=== PATIENT | female | born 1950 | race Caucasian/White ===

== ENCOUNTER 2018-12-29 12:00 | Outpatient (CLI) | payer MEDICARE, OTHER ==
--- NOTE | 2018-12-29 12:28 | XRAY Report ---
Reason: PAIN BLOATING Procedure Date: 12/29/2018 Accession Number: [id number] / [id number] Procedure: XRN - Abdomen 1 View X-Ray CPT Code: 23655 FULL RESULT: EXAM: ABDOMEN RADIOGRAPHY EXAM DATE: 12/29/2018 12:14 PM. CLINICAL HISTORY: Pain, bloating. COMPARISON: None. TECHNIQUE: 1 view. FINDINGS: Bowel Gas Pattern: Within normal limits. No dilated loops. Other: None. IMPRESSION: Nonobstructive bowel gas pattern. RADIA
== END 2018-12-29 12:01 | disposition home or self-care (01) ==
LOC: DI.N 12:00
PROVIDERS: ATTEND Family Medicine
DX: R14.0 Abdominal distension (gaseous) (principal); R10.9 Unspecified abdominal pain
CPT/HCPCS: 74018

== ENCOUNTER 2019-02-24 12:38 | Outpatient (CLI) | payer MEDICARE, OTHER ==
--- NOTE | 2019-02-24 16:40 | CONSULTATION NOTE ---
Palliative Care Consultation - Referral Referring Provider: Dr. 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 Patient originally had breast cancer in 1997. She was known to have BRACA2 mutation. At the time of her surgery, she was diagnosed with high-grade serous fallopian tube carcinoma, with a T CT scan that showed a 7 x 3.8 x 5.1 adnexal mass. She then underwent an optimal cytoreduction and robotic assisted left salpingo-oophorectomy, omentectomy, hysterectomy, and debulking at [facility]. And received dose dense carboplatinum and paclitaxel. With remission, unfortunately recurrence in October 2016. Went on to receive paclitaxel and Avastin. She really received SBRT in December 2017-2 periaortic lymph nodes. Since that time she is also received 3 BP (3 bromo-pyruvate treatment) In [facility] in [place]. She has been managing with hyperbaric oxygen treatments, and supplements. Until about a month ago she was having increased bloating, ascites, and was concerned about obstruction in December/2018. She has since been following up for recommendations regarding treatment, she did see Dr. dowd in December, with recommendation of further chemotherapy with palliative intent. But in seeking a second opinion with Dr. Romero at [facility], She was started on a park inhibitor, this was matched because of her BRCA2 mutation status. Unfortunately she continues to have recurrent ascites, currently has been receiving paracentesis for about every 10 days, with the last one on 02/17 with 5000 mils of fluid. She is getting those up at [facility]. Her PET CT on 01/12/2019 showed extensive metastatic implants with innumerable foci of hypermetabolic lesions along the peritoneal surface consistent with diffuse peritoneal carcinomatosis, several hyper metallic buttock retroperitoneal and mesenteric lymph nodes consistent with mets, with the largest 2.1 x 1.3 soft tissue nodule in the left mesentery. Patient has had recurrent paracentesis, over the last couple months, lasting days prior to needing for symptomatic relief. She does report feeling quite horrible after them, with sharp shooting pains and fatigue. Reports takes 2 to 3 days to recover. They are waiting to see her response to her treatment, but have introduced possible Pleurx catheter for symptom management. Patient presents is quite fragile, notable cachexia, weakness and activity intolerance. She does get breathless with ambulating short distances. She does have recurrent ascites, they are trying to wait until mid next week. It is firm but not taut. She is most comfortable laying flat, is able to accommodate her in a hospital bed. Palliative care to establish rapport, focus on quality of life issues and symptom management, and provide anticipatory guidance as patient allows. 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 Support System: Patient to Ed for over 12 years, they did actually known each other in jal[place] high. 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 Her daughter and son-in-law are involved in her care, her daughter is a manager technical services and her son-in-law local pharmacist. She does have a son but they are estranged. Family History - Family History Family History: Mother: (one brother of cancer age 80; other NH 68), CVA/TIA, Father: , Cancer (age 56), Brother: , Cancer, NH Medications/Allergies - Medications Home Medications: Ambulatory Orders Medication Instructions Recorded Confirmed Olaparib [Lynparza] 300 mg PO BID 02/25/19 02/25/19 Prochlorperazine Maleate 10 mg PO BID PRN 02/25/19 02/25/19 oxyCODONE/ACET 5/325 [Percocet 5 1 tab PO Q4HR PRN 02/25/19 02/25/19 mg/325 mg] - Allergies Allergies/Adverse Reactions: Allergies Allergy/AdvReac Type Severity Reaction Status Date / Time erythromycin base Allergy Unknown Nausea Verified 02/02/14 06:47 [Erythromycin Base] Review of Systems - Constitutional Constitutional: reports: Fatigue, Weight loss - Eyes Eyes: reports: Vision loss, Corrective lenses - Ears, Nose & Throat Ears, Nose & Throat: reports: Other (taste changes) - Cardiovascular Cardiovascular: reports: Exertional dyspnea, Decr. exercise tolerance - Respiratory Respiratory: reports: Orthopnea, SOB at rest, SOB with exertion - Gastrointestinal Gastrointestinal: reports: Abdominal pain, Abdominal distention, Constipation, Nausea, Reflux/heartburn, Bloating, Poor appetite, Early satiety - Genitourinary Genitourinary: denies: Incontinence - Musculoskeletal Musculoskeletal: reports: Muscle weakness - Integumentary Integumentary: reports: Dryness - Neurological Neurological: reports: General weakness - Psychiatric Psychiatric: reports: Depression, Anxiety - Hematologic/Lymphatic Hematologic/Lymphatic: reports: Anemia - All Other Systems All Other Systems: reports: Reviewed and negative Physical Exam - Vital Signs Pulse Rate: 87 Respiratory Rate: 18 Blood Pressure: 103/69 - Physical Exam General Appearance: positive: Mild distress, Anxious Eyes Bilateral: positive: Normal inspection Neck: positive: No JVD, Trachea midline Cardiovascular: positive: Tachycardia Respiratory: positive: No respiratory distress Abdomen: positive: Distended Skin: positive: Pallor, Dryness Extremities: positive: No pedal edema Neurologic/Psychiatric: positive: Oriented x3, Weakness, Flat affect Palliative Care - POLST Patient has POLST: No POLST Status: Full Code Pain: Pain worsening, Location (She describes her pain is abdominal, dull ache and pressure. Not to the point that she needs to take a Percocet. Most of her pain is at night, she describes what she calls "Restless leg syndrome". She wakens up feels like she needs to move her legs, most of it is in her thighs. She does take a Percocet, which makes her sedated and she goes back to sleep. She is also been using some cannabis, but does not feel this impacts her pain or discomfort. She is most uncomfortable standing for long periods of time, or sitting, she feels best when she is lying out without the pressure of her ascites.) Tiredness/Fatigue: Severe (7-10) Drowsiness/Sedation: Moderate (4-6) Nausea: Moderate (4-6) Depression: Moderate (4-6) Anxiety: Mild (1-3) Dyspnea: Severe (7-10) Anorexia: Severe (7-10) Sleep: Variable sleep pattern Constipation: Yes, Opoid induced, Unmanaged, Intermittent constipation Feelings of wellbeing/Perceived Quality of Life: Good Performance Status: Patient does report takes a significant amount of time given her activity tolerance and discomfort to stress. Her is helping her with ADLs, meal prep, and transportation. She is still continue to try to work, though does find this difficult particularly with her recurrent ascites. She does need frequent rest periods when ambulating secondary to breathlessness and weakness. - Palliative Care Discussion: Patient has had multiple rounds of treatments and remissions, she is expecting a good outcome as well from the park inhibitor. She is quite anxious for it to work, particularly in the context of her ascites and discomfort. She does admit to weakness, that things are quite difficult, and "wants to stay positive". When probed about her worries and her concerns, she is quite clear she does not want to name anything negative. We did discuss in the context of this, I will take her lead, that she is welcome to express or ask questions as we continue to build our relationship over the next several weeks to months. Her kristy is a huge component of her coping, she has had pairs for healing, and is hoping for a miracle. Her concurs, as far as an approach to stay positive, but does exhibit concern particularly for her quality of life issues, and functional decline. Results - Lab Results Lab results reviewed: Yes Lab and Imaging Results: Labs from 02/03 show adequate kidney function, low protein at 5.8 albumin 2.8, slight anemia with a hemoglobin of 11.0 and hematocrit 35 her Ca 1 25 was 15,303. Previous documented Ca 1 25 on 01/09 was Ca 1 25 12,878 Impression and Recommendations - Palliative Care Impression: This is a 69-year-old woman with fallopian tube cancer, having had multiple treatments, currently on Parp inhibitor. She presents with recurrent ascites, fatigue, anorexia, cachexia, and anxiety. Patient's treatment is palliative in intent, palliative care to provide ongoing support for quality of life issues as well as anticipatory guidance. Recommendations/Counseling Done: 1.Metastatic fallopian tube cancer. Patient currently receiving palliative therapy of parp inhibitor oral therapy. Patient appears to be tolerating with very few side effects, other than exacerbation of her fatigue. Patient has had multiple treatments and remissions in the past, she is hoping for the best extended quantity of life as well as quality. Patient does appear quite fragile, and with functional decline. Noted prognosis of months. 2. Anorexia. This is multifactorial in origin, patient is impacted by her recurrent ascites. Counseling provided to support current strategies used, as well as small frequent feedings, use of supplemental shakes, concern regarding ongoing dehydration. Patient has used CBD products in the past, encouraged to use prior to dinner meal, to improve intake. Counseling provided regarding patient's belief of sugar feeding the cancer versus getting adequate calories and nutrition at this juncture. They are working at finding some kind of keto shake, will need to be balanced with the patient's taste changes and nausea. 3. Acute on chronic pain. Patient with recurrent discomfort regarding her ascites, this is most easily relieved with positioning and paracentesis. Patient does have severe discomfort after draining. Patient currently using Percocet at bedtime, discussed in the context of her symptoms she would like to use our trial Mirapex. Small dose 0.125 mg prescription provided if would like to trial. Encouraged more aggressive use of her Percocet, and aggressive bowel program. 4. Constipation. Patient currently using dry plums with some success of regular BMs. She has had hard stool, as well as difficulty alternating with diarrhea and constipation. Counseling provided regarding titration of bowel meds with MiraLAX with the "mush", and the senna "push". Instructed to increase or use MiraLAX for hard stool, of 1/2-1 capful daily. Instructed to use the senna 1-2 tabs, 2 continue to move her bowels every day with a soft by given her ascites and risk for obstruction. 5. Anxiety. This is multifactorial in origin as well. Practitioner trying to set up rapport and relationship, to better explore some of patient's fears and concerns. She was intermittently tearful, and difficulty discussing her current worries and concerns. Her ability system is set and speaking only positive, uses her kristy and support, and is very involved with her son-in-law and daughter providing support and direction regarding her care as well. Patient does have good social support, will continue to explore and build on her strengths, as well as addressed some anticipatory guidance as patient and family allows. 6. Malignant ascites. Patient does have severe symptoms after paracentesis, with large volume removed. Patient currently newly into her treatment, she does report pain has improved, so hope that response will follow as far as decreasing need for paracentesis. Counseling provided and addressed questions regarding Pleurx, as management in the future if needed. 7. Advanced care planning. Patient's goals at this point, are hoping for the best and response from her treatment. Would like to feel better and focus on quality of life issues. Did not explore advanced care planning documents at this visit, given patient's high anxiety and concerns. Time Spent: 60 minutes with greater than 50% of this done in counseling regarding goals of care, did provide disabled parking permit and ferry pass to ease transportation issues. The next appointment is 03/13. Palliative care to continue to provide support, anticipatory guidance, and focus on symptom management.
== END 2019-02-24 12:39 | disposition home or self-care (01) ==
LOC: PC 12:38
PROVIDERS: ATTEND Nurse Practitioner Adult Health
DX: Z51.5 Encounter for palliative care (principal); G89.3 Neoplasm related pain (acute) (chronic); C78.6 Secondary malignant neoplasm of retroperitoneum and peritoneum; R18.0 Malignant ascites; R53.83 Other fatigue; R63.0 Anorexia; R64 Cachexia; R43.9 Unspecified disturbances of smell and taste; R11.0 Nausea; T50.995A Adverse effect of other drugs, medicaments and biological substances, initial encounter; K59.03 Drug induced constipation; T40.2X5A Adverse effect of other opioids, initial encounter; F41.9 Anxiety disorder, unspecified; Z85.3 Personal history of malignant neoplasm of breast; Z90.79 Acquired absence of other genital organ(s); Z90.721 Acquired absence of ovaries, unilateral; Z90.710 Acquired absence of both cervix and uterus; Z92.3 Personal history of irradiation; Z85.44 Personal history of malignant neoplasm of other female genital organs; Z15.09 Genetic susceptibility to other malignant neoplasm; Z79.891 Long term (current) use of opiate analgesic
CPT/HCPCS: 99205

== ENCOUNTER 2019-05-11 13:51 | Outpatient (CLI) | payer MEDICARE, OTHER ==
--- NOTE | 2019-05-11 16:55 | CONSULTATION NOTE ---
Palliative Care Follow Up - Referral Referring Provider: Dr. Chastity Romero Time of Visit: 2-2:45 [place] [facility] [place] Reason: Anxiety/Recurrent high grade fallopian tube cancer - Information Sources Records reviewed: Previous records reviewed History/Review of Systems obtained from: Patient, Family ( Ed present for visit) Exam limitations: No limitations - History of Present Illness Update Brief HPI Update: This is a yaw 69-year-old woman who has recurrent high-grade fallopian tube cancer, who is currently been on olaparib. I originally saw her in February, she is doing much better. She has not needed a paracentesis for about 2 months, but is starting to have some right current ascites, abdominal pressure and tightness. She has overall had improved pain in her abdomen, but still finds this problematic, as well as pain bilaterally in her hips radiating down her legs. It also appears to have somewhat of a neuropathic component where she rubs the balls of her feet, with some relief. She did trial some gabapentin through Dr. Romero, but found it too sedating. She is continue to use the oxycodone, taking it at bedtime, and repeated in the middle the night if needed. She does not use more than 3 or 4 in 24 hours. She reports she gets quite tearful when she is painful, she does admit to depressive feelings and concerns particularly around her poor prognosis and anxiety. She continues to struggle with early satiety, poor appetite, and has found it challenging to be in what we have labeled the "twilight zone". In review of oncology note it does note her albumin is 3.1 which was improved, hemoglobin 8.9 hematocrit 28, her CA 125 is 21, 840 which is actually decreased. Her imaging of the CT scan showed there was extensive peritoneal and mesenteric masses as well as a small left and trace right pleural effusion. In general her tumor and plans were documented to be decreased compared to her prior PET/CT scan in December. At this point in time there does appear to be a response to her olaparib and are going to continue for now. Social History - Living Situation Living arrangement: At home Living Situation: With spouse/s.o. Support System: She lives with her Ed, with whom she is been for 12 years that they actually knew each other in j[place]il high. 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 Though this becomes more more difficult depending on her fluctuation in pain and energy level. There does appear to be some tension, and certainly acknowledged is difficult to be both the one receiving care as well as trying to be a caregiver. She does have a daughter and grandchildren and their family which she does enjoy, and has been doing activities with her grandchildren. Medications/Allergies - Medications Home Medications: Ambulatory Orders Medication Instructions Recorded Confirmed Olaparib [Lynparza] 300 mg PO BID 02/25/19 05/11/19 Prochlorperazine Maleate 10 mg PO BID PRN 02/25/19 05/11/19 oxyCODONE/ACET 5/325 [Percocet 5 1 tab PO Q4HR PRN 02/25/19 05/11/19 mg/325 mg] Polyethylene Glycol 3350 [Miralax] 17 gm PO DAILY PRN 05/11/19 05/11/19 - Allergies Allergies/Adverse Reactions: Allergies Allergy/AdvReac Type Severity Reaction Status Date / Time erythromycin base Allergy Unknown Nausea Verified 02/02/14 06:47 [Erythromycin Base] Review of Systems - Constitutional Constitutional: reports: Fatigue, Poor appetite, Weight loss. denies: Fever, Chills - Cardiovascular Cardiovascular: reports: Exertional dyspnea, Decr. exercise tolerance - Respiratory Respiratory: reports: SOB with exertion. denies: SOB at rest - Gastrointestinal Gastrointestinal: reports: Abdominal pain, Abdominal distention, Bloating, Early satiety. denies: Constipation, Nausea, Reflux/heartburn - Musculoskeletal Musculoskeletal: reports: Muscle weakness - Integumentary Integumentary: reports: Dryness - Neurological Neurological: reports: General weakness - Psychiatric Psychiatric: reports: Depression, Anxiety - All Other Systems All Other Systems: reports: Reviewed and negative Physical Exam - Vital Signs Pulse Rate: 90 Respiratory Rate: 16 Blood Pressure: 132/90 - Physical Exam General Appearance: positive: Mild distress, Anxious Eyes Bilateral: positive: Normal inspection, Conjunctivae nml, No scleral icterus ENT: positive: No signs of dehydration. negative: Oral lesions Neck: positive: No JVD, Trachea midline Cardiovascular: positive: Regular rate & rhythm Respiratory: positive: Rhonchi (soft on expiration; decreased breath sounds in bases) Abdomen: positive: Soft, Tenderness, Distended Skin: positive: Pallor, Dryness Extremities: positive: No pedal edema Neurologic/Psychiatric: positive: Oriented x3, Weakness, Depressed mood/affect, Flat affect Palliative Care - POLST Patient has POLST: No POLST Status: Full Code Pain: Pain improved, Severity (11/27), Comment (see hPI) Tiredness/Fatigue: Mild (1-3) Drowsiness/Sedation: Mild (1-3) Nausea: None Depression: Mild (1-3) Anxiety: None Dyspnea: None Anorexia: Moderate (4-6) Sleep: Variable sleep pattern Constipation: Yes, Opoid induced, Managed Feelings of wellbeing/Perceived Quality of Life: Good, Acceptable, Improved Performance Status: Patient continues to go the office, does find some days she does not have the energy or wants to do something different. She does have some activity intolerance, but is able to manage her own ADLs. I would put her at a PPS of 70% - Palliative Care Discussion: Patient does admit to feeling overwhelmed at times, particularly in the context of her prognosis. She did venture into some conversation regarding this today, we did discuss in the context though that she has improved symptom management her pain is better and is more functional, this would be a good time to meet her goal of going camping. Her does have some hesitancy to be away from any medical support, we did discuss doing something nearby, that she has the tools for her pain, nausea, and she is not on chemotherapy so there is no seamus or acute expectations of sequela from her treatment. He very much appears to want her to engage in some supportive activities, she does appear to be struggling and feeling overwhelmed which is appropriate given her healthcare belief model and anxiety. We did focus on things that might help her as far as living in the moment, setting some priorities, looking at some goals. She very much enjoys her grand children, though acknowledges there is tension as they have their regular routines as well. Encouraged to look more short-term rather than at the bigger picture currently. Continuing to hope for the best, and seeking out support as she needs with any physical and/or emotional symptoms. Did offer to both patient and , palliative care criminal justice social worker and compress trucker for further support. Encouraged to call for support for his own needs as well Results - Lab Results Lab results reviewed: Yes Impression and Recommendations - Palliative Care Impression: This is 69-year-old woman with recurrent fallopian tube cancer, who has a history of having multiple treatments, currently on part inhibitor. She has had some improvement with her symptom burden, but continues to struggle with pain, fatigue, anorexia and anxiety. Palliative care to continue to be available to provide support for pain and symptom management and anticipatory guidance. Recommendations/Counseling Done: 1.Ascites. Patient continues with ascites, though much improved from last visit. She does have some distention and a fluid wave, but is not tight. She has not had any paracentesis for about 2 months, it would be good if she could continue to avoid this, but counseling provided regarding not to allow it to be an acute situation. She prefers to have it done at [facility], will call if she needs help facilitating but at this point does not feel she is at the threshold, would be in agreement though it is probably adding to her discomfort. 2. Pain of neoplastic origin. Patient currently using oxycodone 5 mg / 325 mg 2-3 / 24-hour. She is using for intermittent pain particularly at bedtime she describes her pain is in her buttocks radiating down the back of her thighs with a restless leg component to it. Did offer her some Mirapex, as she found gabapentin to sedating. Patient is hesitant to do anything different, I also reassured her that if her pain is persistent and worsening we could certainly look at adding something long-acting. Patient feels she is impacted when she is having more pain, as far as her ability to cope and her depression. 3. Anorexia. Patient does present with early satiety, decreased intake, and fi nds difficulty figuring out what to eat. There does appear to be some tension regarding this, we did discuss in the context of when skipping meals, would recommend again using some kind of supplemental shake. His encouraged to add at least 1-2 anyway, as she is quite thin and cachectic and would benefit from some weight gain or at least weight stabilization. 4. Constipation. Patient is managing with her MiraLAX, does not present with any signs or symptoms of obstruction. 5. Anxiety. This is multifactorial, patient was able to share more of her concerns today, will continue to explore as patient allows, patient does have good social support but appears quite emotionally fatigued today. Did offer support of palliative care criminal justice social worker and or compress trucker. To one or both of them. 6. Advanced care planning. Patient's goals remain at this point hoping for the best, though does understand she has a poor prognosis. She is wondering if she knew more accurately what her timeline was if this would be of help, we discussed in the realm of new treatment options including part inhibitors it makes it more difficult but does understand she has outlived her prognosis. Encouraged her though if it were 2 years or 2 days, to set priorities and find ways to add to her quality of life. Patient willing to continue with palliative care, will allow patient to set the pace, encouraged visit in few weeks, otherwise palliative care team will contact her. Time Spent: 45 minutes with greater than 50% of this done in counseling regarding anxiety, goals of care, pain and symptom management and anticipatory guidance
== END 2019-05-11 13:52 | disposition home or self-care (01) ==
LOC: PC 13:51
PROVIDERS: ATTEND Nurse Practitioner Adult Health
DX: Z51.5 Encounter for palliative care (principal); G89.3 Neoplasm related pain (acute) (chronic); R18.8 Other ascites; R63.0 Anorexia; R68.81 Early satiety; R53.83 Other fatigue; F41.9 Anxiety disorder, unspecified; K59.00 Constipation, unspecified; R53.1 Weakness; C57.00 Malignant neoplasm of unspecified fallopian tube; Z79.899 Other long term (current) drug therapy; Z79.891 Long term (current) use of opiate analgesic
CPT/HCPCS: 99215

== ENCOUNTER 2019-08-31 13:28 | Outpatient (CLI) | payer MEDICARE, OTHER ==
--- NOTE | 2019-08-31 17:48 | CONSULTATION NOTE ---
Palliative Care Follow Up - Referral Referring Provider: Dr. Chastity Romero Time of Visit: [id number] [place] setting: [facility] [place] Reason: Pain of neoplastic origin/anxiety/Recurrent high grade fallopian cancer - Information Sources Records reviewed: Previous records reviewed History/Review of Systems obtained from: Patient, Family (accompanied by her ED) Exam limitations: Clinical condition (patient always anxious in talking about her cancer) - History of Present Illness Update Brief HPI Update: This is a yaw 69-year-old woman who has recurrent high-grade fallopian tube cancer, with known somatic BRCA2 mutation on Olaparib since 02/05. She recently saw the oncologist, her scans, and it does show disease progression with increasing size and number of peritoneal nodules. She also presents today with increased ascites, she has not needed to be tapped since 04/2019. It was recommended to add bevacizumab, and continue with Olaparib. She is awaiting a call from [facility], to initiate receiving her treatment there, also there was a delay in getting her olaparib, and has been off it over a week. She is understandably disappointed, but also quite fearful of having toxic chemotherapy again. She has been on multiple lines of palliative chemotherapy, as well as some integrative and toxic therapies, her quality of life had improved on her most recent treatment. She was reassured in her review of Avastin, though he does have its onset of side effects that are of concern, it would not be similar to her experience with carbo/Taxol in the past. Patient does present with some symptoms of increased disease, her abdomen is quite taut and she is having more pressure and pain. She is using oxycodone 5 mg up to 5 times a day, she reports it does travel and shoot down bilaterally in her upper back of legs, particularly at nighttime. She does have some nausea with her Olaparib, and continues with taste changes and poor appetite. She does admit to some depression, and gets quite tearful when she has escalation in her pain. Patient and do present with some tension today, did try and explore this, it does appear more consistent with how they both approach her illness. Patient is somewhat overwhelmed and sad today, her niece a few days ago, she was 56 and of metastatic breast cancer, again BRCA2 positive. She is expressing some survivorship feels, though please to have extended quality and quantity of life, is concerned about what is next. 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 Patient did not follow-up with her PCP for other recommendations for blood pressure management, she did not take her propranolol this morning, her blood pressure is elevated 159/103, she reports it has been running in a good range around 140/70. She is scheduled to have paracentesis on Wednesday, and I did reach out to [facility] patient navigator Alma to help facilitate follow up with Dr. Quintero as her appointment was back on 08/03. Social History - Living Situation Living arrangement: At home Living Situation: With spouse/s.o. Support System: She lives with her Brigido, they have been for 12 years, have actually known each other since jalil high. 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 Of note he has lost his previously, and patient is worried about him. Patient does have a daughter and son, she does enjoy spending time with her grandchildren, and are planning pending activities for [place]. Medications/Allergies - Medications Home Medications: Ambulatory Orders Medication Instructions Recorded Confirmed Olaparib [Lynparza] 300 mg PO BID 02/25/19 05/11/19 Prochlorperazine Maleate 10 mg PO BID PRN 02/25/19 05/11/19 oxyCODONE/ACET 5/325 [Percocet 5 1 tab PO Q4HR PRN 02/25/19 05/11/19 mg/325 mg] Polyethylene Glycol 3350 [Miralax] 17 gm PO DAILY PRN 05/11/19 05/11/19 Propranolol [Inderal] 40 mg PO BID 09/01/19 09/01/19 - Allergies Allergies/Adverse Reactions: Allergies Allergy/AdvReac Type Severity Reaction Status Date / Time erythromycin base Allergy Unknown Nausea Verified 02/02/14 06:47 [Erythromycin Base] Review of Systems - Constitutional Constitutional: reports: Fatigue, Other (patient appears more thin in extremeties and temporal wasting; abd taut so weight not reflective; she will weigh after tap). denies: Fever, Chills - Eyes Eyes: reports: Vision loss - Ears, Nose & Throat Ears, Nose & Throat: reports: Other (voice weaker) - Cardiovascular Cardiovascular: reports: Decr. exercise tolerance - Respiratory Respiratory: denies: SOB at rest - Gastrointestinal Gastrointestinal: reports: Abdominal distention, Nausea (intermittent), Bloating, Poor appetite, Early satiety. denies: Constipation - Musculoskeletal Musculoskeletal: reports: Muscle weakness - Integumentary Integumentary: reports: Dryness - Neurological Neurological: reports: General weakness - Psychiatric Psychiatric: reports: Depression, Anxiety - Hematologic/Lymphatic Hematologic/Lymphatic: reports: Anemia (10.5) - All Other Systems All Other Systems: reports: Reviewed and negative Physical Exam - Vital Signs Pulse Rate: 56 Respiratory Rate: 18 O2 Saturation: 99 (ra @ rest) Blood Pressure: 159/103 - Physical Exam General Appearance: positive: Alert, Mild distress, Anxious Eyes Bilateral: positive: Normal inspection ENT: positive: No signs of dehydration Neck: positive: No JVD, Trachea midline Cardiovascular: positive: Regular rate & rhythm Respiratory: positive: Diminished in bases. negative: Wheezes, Rales, Rhonchi Abdomen: positive: Tenderness, Distended, Taut Skin: positive: Pallor Extremities: positive: No pedal edema Neurologic/Psychiatric: positive: Oriented x3, Weakness, Flat affect Palliative Care - POLST Patient has POLST: No Pain: Pain unchanged, Location (abdominal distension; back of legs when lying; movement and twisting make it worse; meds make it better) Tiredness/Fatigue: Mild (1-3) Drowsiness/Sedation: Mild (1-3) Nausea: None Anorexia: Mild (1-3) Dyspnea: None Depression: Mild (1-3) Anxiety: None Feelings of wellbeing/Perceived Quality of Life: Good, Acceptable Sleep: Sleeps well Constipation: Yes, Opoid induced, Managed Performance Status: Does have limited energy, but is able to manage her own ADLs. She "puts is in the morning", and goes in for few hours during the day to work. She does tire quickly. - Palliative Care Discussion: Discussion centered on feelings of loss and grief with her niece, also reflecting on gratefulness of her extended quantity and quality of life. She had done well over the summer on her new treatment, continues to be quite functional though is now having some reaccumulating ascites. We did discuss weighing benefits and burdens with each treatment decision as it came up, as she is reticent given her history and worried about feeling badly again from the chemotherapy. She continues to hope for prolonged time, did explore what defines QOL for her. Ed presents with some tension, wanting to stay present and supportive, they are hoping to travel or take some time away from work after meet with next oncologist. Results - Lab Results Lab results reviewed: Yes Lab and Imaging Results: 1121, WBCs 3.61; RBC 3.43; hemoglobin 10.5; hematocrit 32%; sodium 140; potassium 3.9; BUN 16; creatinine 1.07; total protein 6.8; albumin 3.9; CEA 125 V2 7217 from 07/17 Impression and Recommendations - Palliative Care Impression: This is a 69-year-old woman with recurrent fallopian tube cancer, who has a long history of multiple lines of treatment, currently on a parp inhibitor. She recently had restaging scans shot, that did show recurrence of disease. She is also presents with increasing ascites, with scheduled paracentesis next week. She is awaiting appointment with Dr. Quintero at [facility], with the goal most likely to add Avastin. She does present is hypertensive today, had not taken her BP meds. She continues to struggle with pain, fatigue, anorexia and anxiety. Palliative care to continue to valuable to provide support for pain and symptom management and anticipatory guidance. Recommendations/Counseling Done: 1. Pain of neoplastic origin. Patient continues with fluctuating pattern of pain, most likely exacerbated by her increasing ascites. She is using about 25 mg of oxycodone in 24 hours. She does perceive good relief. Counseling provided regarding introducing long-acting pain medication, for better relief consistently. She remains quite hesitant for any kind of changes, but appreciated knowing there was a next step or could improve her pain management. She will let me know if she wants to try something different. Prescription provided for 180 5 mg tabs. 2. Hypertension. Patient was started on propranolol somewhat urgently, as patient had called with elevated blood pressures. She has been on 40 mg twice daily with fairly good control, she did not follow-up with her PCP. Given they are going to initiate Avastin, would recommend follow-up with PCP or oncologist for alternative medication, will see how she does after paracentesis, as she has hx of hypotension as well. 3. Ascites. Patient expects most likely will meet the threshold for paracentesis, is due for labs on Wednesday, and scheduled procedure on Wednesday. 4. Re-current fallopian tube cancer. Reviewed side effects of Avastin, given patient's high anxiety and hesitation to take on more toxicity. Call to [facility] with patient navigator, to facilitate referral as unable to locate. Patient anxious to get started, she does believe her opalarib is coming tomorrow in the mail, unfortunately was mix up and did not receive this week. 5. Anxiety. This is multifactorial, continue to build rapport for patient able to share her concerns. She does have good social support, but easily gets emotionally fatigued. Continue to offer supportive palliative care social media executive and/or offset plate maker to both her and to add. 6. Advanced care planning. Patient's goals remain to continue for the hope for the best, though she does have understanding that she has serious disease. Encouraged again for her to continue set priorities and find ways to add quality of life and time with family. Patient is willing to continue with palliative care, will allow patient to contact me and set the pace, encouraged ongoing visits for anticipatory guidance and support. Time Spent: 60 minutes with greater than 50% of this done in counseling regarding symptom management, anticipatory guidance, and management of anxiety. Coordination of care to help facilitate referral to [facility].
== END 2019-08-31 13:29 | disposition home or self-care (01) ==
LOC: PC 13:28
PROVIDERS: ATTEND Nurse Practitioner Adult Health
DX: Z51.5 Encounter for palliative care (principal); G89.3 Neoplasm related pain (acute) (chronic); C57.00 Malignant neoplasm of unspecified fallopian tube; R18.8 Other ascites; F41.9 Anxiety disorder, unspecified; I10 Essential (primary) hypertension; Z79.899 Other long term (current) drug therapy; Z79.891 Long term (current) use of opiate analgesic
CPT/HCPCS: 99215

== ENCOUNTER 2019-11-13 14:01 | Outpatient (CLI) | payer MEDICARE, OTHER ==
--- NOTE | 2019-11-13 15:19 | CONSULTATION NOTE ---
Palliative Care Follow Up - Referral Referring Provider: Dr. Chastity Romero Time of Visit: [id number] Referral setting: [facility] [place] Referral Reason: Pain of neoplastic origin/HTN/Fallopian CA Stage IV - Information Sources Records reviewed: Previous records reviewed History/Review of Systems obtained from: Patient, Family ( Ed present) Exam limitations: No limitations - History of Present Illness Update Brief HPI Update: This is a yaw 69-year-old woman who has recurrent high-grade fallopian tube cancer, with known somatic BRCA2 mutation. She has been on olaprib since 01/2019 with disease progression in 06/2019 with addition of IV bevacizumab in September of 2019. Her original diagnosis was in 11/2015, with multiple treatments including alternative treatments between then and now, she does present with a long extensive history with treatments. She is currently quite pleased, her abdominal pain has diminished, she is only needing about 4 total Percocet in 24 hours, does find this is adequate. She reports her pain is more at a dull level, of a bad period, but often awakens with the highest level of pain in the morning. She is eating better, does admit she could do better with fluids. Her energy is much improved, she is thrilled that her abdomen has gone down, her ascites seems to be improved, and no longer can palpate a mass in her left lower quadrant. She has had decreased Ca1 25, almost 50% between September and October, so is feeling overall encouraged. Her biggest concern is presenting with hypertension. She was to have started amlodipine after her visit with oncology last , she just now picked up her prescription. She had doubled her propanolol, but she went from 20 mg twice daily to 40 mg twice daily. Patient had originally been started on propanolol in response as a bridge to her PCP, she never went back for blood pressure management. Her mother of a stroke, she has high anxiety. We discussed at length it is a side effect at this point time of her bevacizumab, and just asked with pain meds and constipation, we often have to add hypertensive medications and [id number] with treatment with Avastin. This seem to be reassuring to her. She presents with lower symptom burden, her fatigue is improved, no nausea. She is managing her constipation with titration of MiraLAX. She is finding her current quality of life is actually quite good, she enjoys spending time with her grandchildren. She very much wants to stay positive about treatment, hoping for improved quality as well as quantity of life, palliative care continues to set the stage for rapport and allows patient to leave the conversation per her request. Social History - Living Situation Living arrangement: At home Living Situation: With spouse/s.o. Support System: She lives with her Brigido, they have been for 12 years, have known each other actually since jalil high. 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 There is some tension, patient does have a daughter and son, she does stay in contact with her daughter on a regular basis. She does feel like she has adequate support, she is very much into her kristy community. Medications/Allergies - Medications Home Medications: Ambulatory Orders Medication Instructions Recorded Confirmed Olaparib [Lynparza] 300 mg PO BID 02/25/19 11/13/19 Prochlorperazine Maleate 10 mg PO BID PRN 02/25/19 11/13/19 oxyCODONE/ACET 5/325 [Percocet 5 1 tab PO Q4HR PRN 02/25/19 11/13/19 mg/325 mg] polyethylene glycoL 3350 [Miralax] 17 gm PO DAILY PRN 05/11/19 11/13/19 Propranolol [Inderal] 20 mg PO BID 09/01/19 11/13/19 Gabapentin 300 mg PO QPM 11/13/19 11/13/19 amLODIPine [Norvasc] 5 mg PO DAILY 11/13/19 11/13/19 - Allergies Allergies/Adverse Reactions: Allergies Allergy/AdvReac Type Severity Reaction Status Date / Time erythromycin base Allergy Unknown Nausea Verified 02/02/14 06:47 [Erythromycin Base] Review of Systems - Constitutional Constitutional: reports: Fatigue, Weight stable. denies: Fever, Chills - Cardiovascular Cardiovascular: reports: Decr. exercise tolerance - Respiratory Respiratory: denies: SOB at rest - Gastrointestinal Gastrointestinal: reports: Abdominal pain (improved), Abdominal distention (d ecreased), Early satiety. denies: Constipation (using Miralax appropriately), Nausea - Musculoskeletal Musculoskeletal: reports: Stiffness, Muscle weakness - Integumentary Integumentary: reports: Dryness - Neurological Neurological: reports: General weakness (improved) - Psychiatric Psychiatric: reports: Depression, Anxiety - Hematologic/Lymphatic Hematologic/Lymphatic: reports: Anemia (10.3). denies: Recurrent infections - All Other Systems All Other Systems: reports: Reviewed and negative Physical Exam - Vital Signs Pulse Rate: 62 Respiratory Rate: 18 O2 Saturation: 100 (ra @ rest) Blood Pressure: 145/85 - Physical Exam General Appearance: positive: Alert, Anxious Eyes Bilateral: positive: Normal inspection ENT: positive: No signs of dehydration Neck: positive: Trachea midline Cardiovascular: positive: Regular rate & rhythm Respiratory: positive: No respiratory distress Abdomen: positive: Non-tender, Nml bowel sounds. negative: Mass, Distended Skin: positive: Pallor, Dryness Extremities: positive: No pedal edema Neurologic/Psychiatric: positive: Oriented x3, Mood/affect nml, Weakness, Flat affect Palliative Care - POLST Patient has POLST: No POLST Status: Full Code Pain: Pain improved, Location (Abdominal pain; "feels like a bad period"; using percocet about 4-5 tabs total/24 hours. Feels pain improved) Tiredness/Fatigue: Mild (1-3) Drowsiness/Sedation: Mild (1-3) Nausea: None Anorexia: None Dyspnea: None Depression: Mild (1-3) Anxiety: None Feelings of wellbeing/Perceived Quality of Life: Excellent, Acceptable, Improved Sleep: Variable sleep pattern Constipation: Yes, Opoid induced, Managed Performance Status: Patient reports she does have her routine, she sometimes awakens in pain, slow to get going, but gets up has some breakfast but something in the crockpot gets herself ready and goes to work for a few hours. 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 She reports her intake is better she is able to manage her ADLs. The concern is of her , is to get her not to overdo. - Palliative Care Discussion: Patient continues to be quite anxious about her diagnosis, does feel like she is encouraged with her diminishing Ca1 25, her symptoms are much better, she does present with decreased disease burden as well as symptom burden. She did ask questions, around the edges, regarding treatment, how to know if it's not working, and worried some about the future but wants to stay positive so asking some questions. She has had a healing prayer, her kristy is quite important to her, we did discuss in the context of a holistic approach that it is important for her to her to integrate this into her treatment plan. That we will respect this, she is finding balance in there, and positive reinforcement given regarding her diminishing symptoms. There is obviously some tension notable between her and her , counseling provided and attempts to normalize the grief and loss process, they have been doing this for a while, patient often gets tearful and irritable with pain, discussed the role of emotions in response to their current situation. Again offered counseling opportunity for as well as patient if wanted to take advantage of it. He will contact me and let me know if he would like me to further pursue this with our medical palliative social media director Eduardo. Perceive my role as continue to be supportive, allowing patient to set the tone, patient is not interested in talking around end-of-life or advanced care planning, but am answering questions as she ventures out into more difficult topics. Results - Lab Results Lab results reviewed: Yes Lab and Imaging Results: CA 125 decreased to 2845 11/10 from 10/13 4485 with the addition of Avastin Impression and Recommendations - Palliative Care Impression: This is a 69-year-old woman with recurrent fallopian tube cancer, who has a long history of multiple lines of treatment, currently on a park inhibitor with the addition of bevacizumab. When I saw her in August, she had restaging scans that showed recurrence of disease, and increasing ascites. She has since received 2 treatments of the bevacizumab with dramatic improvement in her symptoms, and resolution of ascites, and decreased mass. She will be getting her infusions ongoing at [facility] every three weeks. Patient is having HTN related to her bevacizumab and is anxious. Palliative care continue to meet with patient regarding pain and symptom management and anticipatory guidance in the setting of continued development of rapport Recommendations/Counseling Done: 1. Hypertension. This is multifactorial, patient does have baseline hypertension that is somewhat labile related to her pain and anxiety. With the initiation of the bevacizumab, has stayed persistently high. Her oncology team appropriately started on her on some amlodipine last , patient has not initiated this, in response she has doubled her propranolol from 20 mg twice daily to 40 mg twice daily. She was quite anxious as her blood pressure was up again this morning 181/94, today on exam though her blood pressure is 145/85, with a pulse of 62. Counseling provided regarding side effect of her current therapy, and need to consistently control this. Amlodipine more appropriate medication, she is to start this daily, will titrate her back to her 20 mg propranolol 1/2 mg twice daily, and discontinue if blood pressures come into appropriate range. Patient though has been instructed if blood pressure greater than 160/90 can continue the propranolol at 40 mg twice daily until it drifts down with the initiation of her new medication. She is to contact me if it is not resolved within the week, and we can taper off the propranolol and add hydrochlorothiazide or benazepril. She had been encouraged to follow-up with her PCP regarding her blood pressures, but declined, will follow current plan. Can be adjusted accordingly through oncology or palliative care. 2. Pain of neoplastic origin. Patient does present with decreased tumor burden, and improved symptom burden. She still has intermittent pain, and has decreased her oxycodone 5 mg / 325 mg acetaminophen dosing, but still finding it necessary to keep her comfortable, she still has at baseline 2 out of 10 pain, which increases up to 5-6 over 10 when she takes medication. She is careful and titrating her bowel meds. She is using her medications appropriately. She is also added back in the gabapentin at bedtime 300 mg, she does have cramping sometimes and restless legs. 3. Anxiety. Patient does have baseline have anxiety and concern regarding the seriousness of her illness and her concern about both quality of life and quantity of life. Counseling provided regarding normalizing her fears, answered her questions as she ventured out, time spent just reviewing her current quality of life and things that were working and not working. Did offer medical palliative care social media director, particularly to , as there is noted tension, encouraged that it is not unusual for most relationships to be strained and at best even at baseline communication and marriage is difficult. 4. Metastatic stage IV fallopian cancer. She is getting a measurable response both in tumor burden and symptom burden. Had originally wanted to receive infusions closer to home, and discussion regarding benefits and burdens of establishing with a new oncologist (the one she wanted had unexpectedly) would recommend she continue with every 3 weeks follow up at the [facility]. Though it is a long journey, they are both comfortable with the care they are receiving there and can always fall back if there is more urgent care needs with palliative care. Time Spent: See minutes with greater than 50% of this done in counseling regarding pain and symptom management anticipatory guidance, and management of hypertension.
== END 2019-11-13 14:02 | disposition home or self-care (01) ==
LOC: PC 14:01
PROVIDERS: ATTEND Nurse Practitioner Adult Health
DX: Z51.5 Encounter for palliative care (principal); I15.8 Other secondary hypertension; T45.1X5A Adverse effect of antineoplastic and immunosuppressive drugs, initial encounter; G89.3 Neoplasm related pain (acute) (chronic); F41.9 Anxiety disorder, unspecified; K59.03 Drug induced constipation; T40.2X5A Adverse effect of other opioids, initial encounter; C57.00 Malignant neoplasm of unspecified fallopian tube; Z79.899 Other long term (current) drug therapy; Z79.891 Long term (current) use of opiate analgesic
CPT/HCPCS: 99215

== ENCOUNTER 2020-01-16 11:00 | Outpatient (CLI) | payer MEDICARE, OTHER ==
--- NOTE | 2020-01-16 17:28 | CONSULTATION NOTE ---
Palliative Care Follow Up - Referral Referring Provider: Dr. Gely Butler Medications/Allergies - Medications Home Medications: Ambulatory Orders Medication Instructions Recorded Confirmed Olaparib [Lynparza] 300 mg PO BID 02/25/19 11/13/19 Prochlorperazine Maleate 10 mg PO BID PRN 02/25/19 11/13/19 oxyCODONE/ACET 5/325 [Percocet 5 1 tab PO Q4HR PRN 02/25/19 11/13/19 mg/325 mg] polyethylene glycoL 3350 [Miralax] 17 gm PO DAILY PRN 05/11/19 11/13/19 Propranolol [Inderal] 20 mg PO BID 09/01/19 11/13/19 Gabapentin 300 mg PO QPM 11/13/19 11/13/19 amLODIPine [Norvasc] 5 mg PO DAILY 11/13/19 11/13/19 - Allergies Allergies/Adverse Reactions: Allergies Allergy/AdvReac Type Severity Reaction Status Date / Time erythromycin base Allergy Unknown Nausea Verified 02/02/14 06:47 [Erythromycin Base]
--- NOTE | 2020-01-16 17:37 | PROVIDER PROGRESS NOTE ---
HPI/Interval History - HPI/Interval History This is a yaw 69-year-old woman who has recurrent high-grade fallopian tube cancer, with known BRCA2 mutation, with her original diagnosis in 11/2015. Patient's had a multiple treatments including alternative treatments between then and now, she currently is on olaparib and bevacizumab. She has had persistent fatigue, this is multifactorial, including most recently noted hypothyroidism, anemia, and side effects of her medications. She has also been experiencing increased difficulty with her blood pressure. Clinically she continues to improve, her abdominal pain has diminished, she is only using 4-5 Percocet in 24 hours finding this adequate. Her pain fluctuates, but her abdomen is flat, her ascites is resolved, and she can no longer palpate a mass in her left lower quadrant. She is continued to have her Ca1 25 decreased, most recently it was 1994. She has been more functional, doing gardening, walking on a property, she does have underlying and ongoing persistent anxiety and gets easily distressed. 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 She does see her grandchildren but through the screen. Continues to be tension between her and her , and he remains quite protective of her. Patient does have significant kristy, and continues very much wanting to focus on the positive. She does understand the seriousness of her illness, and palliative care continues to work on building rapport given her difficulty in talking about advanced care planning and anticipatory guidance. Review of Systems - Constitutional Constitutional: reports: Fatigue, Weight stable. denies: Fever, Chills - Ears, Nose & Throat Ears, Nose & Throat: reports: Dry mouth - Cardiovascular Cardiovascular: reports: Lightheadedness (occasional with b/p meds). denies: Chest pain, Edema - Respiratory Respiratory: denies: SOB at rest - Gastrointestinal Gastrointestinal: reports: Abdominal pain (fluctuates/intermittent relieved with percocet), Early satiety (doing better with fluids). denies: Nausea - Musculoskeletal Musculoskeletal: reports: Stiffness - Integumentary Integumentary: reports: Dryness. denies: Rash - Neurological Neurological: reports: General weakness (improved) - Psychiatric Psychiatric: reports: Depression, Anxiety - Endocrine Endocrine: reports: Hypothyroidism (new dx) - Hematologic/Lymphatic Hematologic/Lymphatic: reports: Anemia (10.3 hemoglobin). denies: Blood clots, Recurrent infections - All Other Systems All Other Systems: reports: Reviewed and negative Medications/Allergies - Medications Home Medications: Ambulatory Orders Medication Instructions Recorded Confirmed Olaparib [Lynparza] 300 mg PO BID 02/25/19 01/16/20 Prochlorperazine Maleate 10 mg PO BID PRN 02/25/19 01/16/20 oxyCODONE/ACET 5/325 [Percocet 5 1 tab PO Q4HR PRN 02/25/19 01/16/20 mg/325 mg] polyethylene glycoL 3350 [Miralax] 17 gm PO DAILY PRN 05/11/19 01/16/20 amLODIPine [Norvasc] 10 mg PO DAILY 11/13/19 01/16/20 Levothyroxine Sodium [Synthroid] 25 mcg PO DAILY 01/16/20 01/16/20 Lisinopril [Prinivil] 5 mg PO DAILY 01/16/20 01/16/20 - Allergies Allergies/Adverse Reactions: Allergies Allergy/AdvReac Type Severity Reaction Status Date / Time erythromycin base Allergy Unknown Nausea Verified 02/02/14 06:47 [Erythromycin Base] Physical Exam - Physical Exam Vital signs taken by patient 148/92 p83 at 0900 took b/p amlodipine 10 mg at 0700 General: Alert and appropriate in no distress, appears well-hydrated, she is engaged, though she continues with some anxiety behaviors. She did warm up and engaged by end of visit. Skin: Color pale, some dryness noted, no rash identified. Respiratory: Patient does not appear in any respiratory distress, breasts even, no increased respiratory rate with verbalization. Gastrointestinal: Patient pushed on her abdomen, demonstrated no tenderness, no ascites observed, patient unable to palpate previous mass. Musculoskeletal: Reports trace edema noted in her ankles. H EENT: Unremarkable, no sclera icterus, thyroid trachea midline. Neuropsychiatric: Patient did eventually make good eye contact, voice is modulated, continues to get easily tearful. Does not present with persistent depressive symptoms. Palliative Care - POLST Patient has POLST: No POLST Status: Full Code Pain: Pain improved, Location (Reports most of pain is located in the back of her legs radiating bilaterally. Mild abdominal pain, worsens at nighttime. Not connected with eating. She is using Percocet 1 tab every 4 5 hours, with good relief.) Tiredness/Fatigue: Moderate (4-6) Drowsiness/Sedation: Mild (1-3) Nausea: None Anorexia: Mild (1-3) Dyspnea: None Depression: Mild (1-3) Anxiety: Moderate (4-6) Feelings of wellbeing/Perceived Quality of Life: Good, Acceptable, Improved Sleep: Variable sleep pattern Constipation: Yes, Opoid induced, Managed Performance Status: Patient reports she is not frisky, but she is doing much more as far as gardening, walking around the property. She denies being sedentary. She has been doing the treadmill about 15 minutes a day. She is doing better with her fluid intake. She is able to manage her own ADLs. She does go in for work-up a few hours every day.She does not present with functional decline today. - Palliative Care Discussion: Patient and somewhat agitated and noted same, in Dr. Romero's note regarding conversation around COVID-19. Ed has been wanting more information about her prognosis, as she is outlived it several times. We did discuss in the context of the Parp inhibitors and immunotherapy, that and it is getting cutting edge therapy and there is many unknowns regarding this. They both understand the seriousness of her illness and treatment is not curative, and continue to hope for both quality and quantity of life. Maryan is quite aligned with her kristy, and believes in spiritual healing and approaching things positively. Did revisit conversation around COVID-19, in the context that all providers are having conversations regarding this for patients who that this would be a serious complication. Reviewed statistics if patient were to become seriously ill, and requiring hospitalization that this is mostly with oxygen and treating any secondary infections, And that if patient had were ill enough to require ventilatory support, that the current status would most finding with older patients with immunocompromise, statistics are sitting around 88% rate, and even for those with survival, severe complications and implications for quality of life in the future. And often these are prolonged times on the respirator as well. Did introduce an alternative, if patient were to be that ill, to focus on comfort and looking at a comfortable respectful . Patient did admit she was the one who introduced the topic, and reviewed all providers to are using these these opportunities to discuss what is most important to patient's. Patient was quite elusive about who her D POA was, she reports she has the paperwork done. I suspect that this is her daughter, and that at Ed may not be privy to this information. So I did not push at this. Reassured and reviewed with patient, if she were to decline, or her illness was to progress, palliative care can provide support and anticipatory guidance regarding this. Reviewed the positives that are currently happening for her, with improved functional status, decreased pain, decreasing Ca1 25 and still able to tolerate treatment. This did ameliorate some of her anxiety and distress. Impression and Recommendations - Palliative Care Impression: This is a 69-year-old woman with recurrent fallopian tube cancer, who has had a long history of multiple lines of treatment, currently on part inhibitor with addition of bevacizumab. She continues to have improvement with decreased pain, resolution of ascites, improved functional status and decreasing Ca1 25. Palliative care continue to build rapport and provide support for pain and symptom management and anticipatory guidance. Recommendations/Counseling Done: 1. Pain of neoplastic origin. Patient's pain has improved, she is still using 4 to 5 tablets in 24 hours with good relief. Her pain fluctuates so not indicated for time-released medication. She is doing fairly well overall and increasing her functional status. She is currently satisfied with her regimen no changes made. Refill provided of 180 tabs of Percocet. 2. Hypertension. Patient dislikes medications, reviewed importance to continue with her current regimen of amlodipine 10 mg, and did recommend continuing with the addition of lisinopril half of a 10 mg tab for 5 mg. Patient is monitoring her blood pressure on a regular basis. This is attributed as a side effect of her Avastin. 3. Lower extremity edema. This is most likely a side effect of amlodipine, as well as her nutritional status. Patient has been instructed to get mild compression hose, both for comfort and management of intermittent lightheadedness. Patient is doing much better with her fluid intake, she has "a soda stream" and feels this is been supportive. 4. Anxiety. Patient has multifactorial, continues with concerns with relationship with her family dynamics and . She is very anxious about her impending decline, and the added stress of COVID-19. Counseling provided regarding normalizing her concerns and addressing questions. 5. Advance care planning. Patient continues to be quite elusive regarding putting together advanced care planning documents. She reports she has some "somewhere". We will continue to elicit patient's values and goals, patient is feeling more comfortable with practitioner, suspect will be able to engage when patient has further decline or needs. Telehealth Visit - TeleMedicine Visit Referring Provider: Dr. Gely Butler Visit Type:: TeleHealth Video Call Patient agrees and consents to this telehealth visit type: Yes Patient agrees to have their insurance billed: Yes Time spent:: 35 minutes Video type:: Doximetry Participants:: Spouse/Significant Other Location of provider:: Office Location of patient:: office Provider Statement: I spent 100% on the TeleHealth Video Call with the patient with greater than 50% spent counseling the patient and coordination of care.
== END 2020-01-16 11:01 | disposition home or self-care (01) ==
LOC: PC 11:00
PROVIDERS: ATTEND Nurse Practitioner Adult Health
DX: Z51.5 Encounter for palliative care (principal); G89.3 Neoplasm related pain (acute) (chronic); C56.9 Malignant neoplasm of unspecified ovary; R53.1 Weakness; E03.9 Hypothyroidism, unspecified; I10 Essential (primary) hypertension; R60.0 Localized edema; F41.9 Anxiety disorder, unspecified; R53.83 Other fatigue; Z79.899 Other long term (current) drug therapy; Z79.891 Long term (current) use of opiate analgesic

== ENCOUNTER 2020-02-16 11:30 | Outpatient (CLI) | payer MEDICARE, OTHER ==
--- NOTE | 2020-02-16 13:34 | PROVIDER PROGRESS NOTE ---
HPI/Interval History - HPI/Interval History This is a yaw 69-year-old woman who has recurrent high-grade fallopian tube cancer, with known BRCA2 mutation, with original diagnosis in 11/2015. Patient has undergone multiple treatments including alternative treatments between then and now, currently she is on olaparib and bevacizumab. Her CA 125 continues to decrease, 1772 02/01 from 01/10 1195. She has mostly had just persistent fatigue, this is multifactorial, including most recent noted hypothyroidism, anemia, and side effects of her medications. Though her functional status has improved dramatically, she is finding much satisfaction and is working out in her garden. This is improved both her physical and emotional state of being. She currently has her blood pressure better controlled. She does present though with persistent abdominal pain, though this is diminished overall. Her pain does fluctuate, she gets relief with the intermittent oxycodone 5 mg, she finds it most painful at night, and radiates to her back down into her legs, somewhat neuropathic in description. She is using total between 5 and 6 tabs in 24 hours. She does find it somewhat disruptive to get up in the middle the night and be take her pain medication, as this is what her pain is most intense.We have discussed before, she is much more open today into considering some time-released oxycodone 15 at least for nighttime use. Review of Systems - Constitutional Constitutional: reports: Fatigue (fluctuates but improved overall), Weight stable. denies: Fever, Chills - Cardiovascular Cardiovascular: reports: Edema (pedal persistent worse at night), Decr. exercise tolerance - Respiratory Respiratory: denies: Cough, SOB at rest - Gastrointestinal Gastrointestinal: reports: Abdominal pain, Good appetite. denies: Abdominal distention, Constipation (controlled on current regimen), Nausea - Musculoskeletal Musculoskeletal: reports: Muscle aches (from working in garden; flucutates), Muscle weakness - Integumentary Integumentary: denies: Rash - Neurological Neurological: denies: Memory problems - Psychiatric Psychiatric: reports: Anxiety. denies: Depression - Endocrine Endocrine: reports: Hypothyroidism - Hematologic/Lymphatic Hematologic/Lymphatic: denies: Recurrent infections - All Other Systems All Other Systems: reports: Reviewed and negative Medications/Allergies - Medications Home Medications: Ambulatory Orders Medication Instructions Recorded Confirmed Olaparib [Lynparza] 300 mg PO BID 02/25/19 01/16/20 Prochlorperazine Maleate 10 mg PO BID PRN 02/25/19 01/16/20 oxyCODONE/ACET 5/325 [Percocet 5 1 tab PO Q4HR PRN 02/25/19 01/16/20 mg/325 mg] polyethylene glycoL 3350 [Miralax] 17 gm PO DAILY PRN 05/11/19 01/16/20 amLODIPine [Norvasc] 10 mg PO DAILY 11/13/19 01/16/20 Levothyroxine Sodium [Synthroid] 25 mcg PO DAILY 01/16/20 01/16/20 Lisinopril [Prinivil] 5 mg PO DAILY 01/16/20 01/16/20 - Allergies Allergies/Adverse Reactions: Allergies Allergy/AdvReac Type Severity Reaction Status Date / Time erythromycin base Allergy Unknown Nausea Verified 02/02/14 06:47 [Erythromycin Base] Physical Exam - Physical Exam General: Blood pressure 143/97. Patient appears well, and making good eye contact, alert and oriented x3. No signs or symptoms of distress. Skin: Color pale, some dryness noted, no rash identified. Respiratory, patient does not appear in any respiratory distress, breaths are even and unlabored. Gastrointestinal: Patient pushing on her abdomen, demonstrated some lower discomfort with deep palpation, no distension, does feel ascites resolved. Musculoskeletal: Patient demonstrates just trace edema in her bilateral ankles. HEENT: Unremarkable, no scleral icterus, trachea midline. Neuropsychiatric: Patient makes good eye contact, voice is modulated, smiling and expressing positive feedback today. Does not present with any depressive symptoms. Palliative Care - POLST Patient has POLST: No POLST Status: Full Code Pain: Pain unchanged, Location (lower abdomen/back radiating down to feet/legs) Tiredness/Fatigue: Moderate (4-6) Drowsiness/Sedation: None Nausea: Mild (1-3) (occasional) Anorexia: Mild (1-3) Dyspnea: None Depression: Mild (1-3) Anxiety: Moderate (4-6) (improved) Feelings of wellbeing/Perceived Quality of Life: Good, Acceptable, Improved Sleep: Variable sleep pattern Constipation: Yes, Opoid induced, Managed Performance Status: Patient remains functional, able to work in her garden. She does take frequent rest periods, is still going to work for a few hours a day. She is able to manage her ADLs. - Palliative Care Discussion: Patient reports she is doing well overall, she is quite pleased compared to her functional status and being about a year ago. Which she was having frequent paracentesis, worsening pain, and feeling like she was on the decline. She is quite hopeful that she has several years yet. Though she does understand the seriousness of her illness, but does feel like she is tolerating her current treatment and continues to get good response. Both her and her have adjusted to the new normal in the pandemic. Patient did venture out the other day, with her mask and did some shopping. Her 's been doing most of it. We did discuss again precautions, but they are feeling less anxious than her last conversation. Discussed with , new palliative care delinquency prevention social worker, would most likely be a good match. He has alluded to be would accept counseling in the past, with some encouragement today he has allowed her to give a call and provide support. Did speak with Maryan separately for short period of time, she feels like that would be of help, does worry about him in his health. They have been somewhat isolated, but feels like they are doing pretty well overall. Just acknowledged the stress given both the unknowns of the pandemic as well as her cancer, can weigh on each of them in a different way as well as worrying about chatter. Impression and Recommendations - Palliative Care Impression: This is a 69-year-old woman with recurrent fallopian tube cancer, who has a long history of multiple lines of treatment, currently on a Parp inhibitor and Bevacizumab.Patient continues with persistent and fluctuating pain, is willing to try some adjustments to her regimen. Palliative care continue to build rapport, and provide support for pain and symptom management and anticipatory guidance in the context of patient's anxiety. Recommendations/Counseling Done: 1. Pain of neoplastic origin. Patient's pain overall has improved, but still using 4 to 5 tablets in 24 hours. Her most disruptive pain, is happening at night. She is interested in trying at least time-released oxyContin at bedtime, I will start her at 15 mg, we did discuss can increase to twice daily if tolerates without side effects. Rx sent to [facility]. 2. Lower extremity edema. Patient has not followed through on any kind of compression hose for management. Recommended follow-up with her son-in-law who is the [facility], would recommend support diabetic socks, this would most likely be easier to get on and off and more likely for her to be compliant with. Patient is doing better with her fluid intake. 3. Hypertension. Patient is continuing her medications, and monitoring her blood pressure on a regular basis and is has been in a good range for her. Will defer to her oncology team for continued management. 4. Anxiety. This is multifactorial, she does appear much more relaxed today, is still hoping for the best including extended quantity of time, in the context of her seriousness of her illness. She does have stressors related to family dynamics and her . today is willing to talk with medical palliative care delinquency prevention social worker will make referral. They have adjusted and are doing better with the stress of COVID-19, reviewed again precautions. 5. Advanced care planning. Patient continues to be elusive about putting together advanced care planning documents. We will continue to elicit patient's values and goals, patient is feeling much more comfortable with nurse practitioner, suspect will be able to engage when patient has further decline or needs but is not wanting to go there right now. She is always been a person who is" positive" as well as believing in healing and prayer. We will respect p michael's current boundaries on the time, but she is willing to engage in harder conversations as we move through our visits. Telehealth Visit - TeleMedicine Visit Referring Provider: Dr. Momo Butler Visit Type:: TeleHealth Video Call Patient agrees and consents to this telehealth visit type: Yes Patient agrees to have their insurance billed: Yes Video type:: Doximetry Participants:: Spouse/Significant Other (part of visit) Location of provider:: Office Location of patient:: her office Provider Statement: I spent 100% on the TeleHealth Video Call with the patient with greater than 50% spent counseling the patient and coordination of care.
== END 2020-02-16 11:31 | disposition home or self-care (01) ==
LOC: PC 11:30
PROVIDERS: ATTEND Nurse Practitioner Adult Health
DX: Z51.5 Encounter for palliative care (principal); G89.3 Neoplasm related pain (acute) (chronic); K59.03 Drug induced constipation; T40.2X5D Adverse effect of other opioids, subsequent encounter; R53.83 Other fatigue; R60.0 Localized edema; I10 Essential (primary) hypertension; F41.9 Anxiety disorder, unspecified; C57.00 Malignant neoplasm of unspecified fallopian tube; Z79.899 Other long term (current) drug therapy; Z79.891 Long term (current) use of opiate analgesic; Z63.79 Other stressful life events affecting family and household

== ENCOUNTER 2020-07-15 15:15 | Outpatient (CLI) | payer MEDICARE, OTHER ==
--- NOTE | 2020-07-15 16:57 | PROVIDER PROGRESS NOTE ---
HPI/Interval History - HPI/Interval History This is an anxious 70-year-old woman with recurrent high-grade fallopian tube cancer, she has been on daily olaparib and Bevacizumab every 21 days. She was having increased shortness of breath, and ruled out for chest CT for PE, but did show progression of disease in the chest. Her CT scan did show multiple new enlarged nodes in the mediastinum, including a large subcarinal node 2.8 x 2.2 cm and enlarging right hilar nodes measuring 2.7 x 2 cm. Her lungs showed multiple new and enlarging pulmonary nodules, is well as concern for substantial narrowing of her right bronchi. Patient has had increased shortness of breath, particularly with activity. She was having some increased wheezing during the fires, she does have some increased discomfort when she lays flat. In review of her note from Dr. Romero, she has had referral to thoracic/pulmonary medicine, but has not heard anything. She will be seen at the clinic to start new treatment as a will be changing her treatment regimen. It does appear they are going to start carbo/Doxil, and obtain imaging after cycle 3. She cassi very anxious about this, she does understand the seriousness of her illness, and is hoping for quality and quantity, but is very fearful of her decline. Her quality of life has been significantly better over this last year, and she tries to remain in the present. Her past medical history includes hypertension, most likely attributed to Bevacizumab. She struggles with restless leg syndrome, vague ongoing abdominal pain, and underlying anxiety. Review of Systems - Constitutional Constitutional: reports: Fatigue, Poor appetite, Weight loss (125). denies: Fever, Chills - Eyes Eyes: reports: Vision loss, Other (did not get cataract surgery; diff at times with floaters) - Ears, Nose & Throat Ears, Nose & Throat: denies: Mouth lesions - Cardiovascular Cardiovascular: reports: Lightheadedness. denies: Chest pain, Edema - Respiratory Respiratory: reports: Wheezing, SOB with exertion. denies: SOB at rest - Gastrointestinal Gastrointestinal: reports: Abdominal pain (controlled on current regimen;), Bloating, Poor appetite, Early satiety. denies: Constipation (using miralax), Nausea, Reflux/heartburn - Genitourinary Genitourinary: reports: Frequency, Nocturia - Musculoskeletal Musculoskeletal: reports: Stiffness, Other (been able to pace self; do her gardening;) - Integumentary Integumentary: reports: Dryness, Other (shared sadnessa about impending hair loss) - Neurological Neurological: reports: General weakness - Psychiatric Psychiatric: reports: Depression, Anxiety - Endocrine Endocrine: reports: Hypothyroidism - All Other Systems All Other Systems: reports: Reviewed and negative Medications/Allergies - Medications Home Medications: Ambulatory Orders Medication Instructions Recorded Confirmed Olaparib [Lynparza] 300 mg PO BID MDD changing tx soon 02/25/19 07/15/20 to dc Prochlorperazine Maleate 10 mg PO BID PRN 02/25/19 07/15/20 oxyCODONE/ACET 5/325 [Percocet 5 1 tab PO Q4HR PRN 02/25/19 07/15/20 mg/325 mg] polyethylene glycoL 3350 [Miralax] 17 gm PO DAILY 05/11/19 07/15/20 amLODIPine [Norvasc] 10 mg PO DAILY 11/13/19 07/15/20 Levothyroxine Sodium [Synthroid] 25 mcg PO DAILY 01/16/20 07/15/20 Lisinopril [Prinivil] 5 mg PO DAILY 01/16/20 07/15/20 Oxycodone HCl [Oxycontin] 15 mg PO BID 04/19/20 07/15/20 Albuterol Sulf [Ventolin Hfa 2 puffs INH TID PRN 06/07/20 06/07/20 Inhaler] - Allergies Allergies/Adverse Reactions: Allergies Allergy/AdvReac Type Severity Reaction Status Date / Time erythromycin base Allergy Unknown Nausea Verified 02/02/14 06:47 [Erythromycin Base] Physical Exam - Physical Exam Patient engaged, voice is loud, able of conversation. She does get tearful when talking about her cancer, and starts to get anxious when asking questions. We did manage to soldier through, she does seem more relaxed by the end of the visit. She did not seem in respiratory distress, she is slightly pale, she is moving around in the office without any difficulty. Palliative Care - POLST Patient has POLST: No Pain: Pain unchanged, Location (abdominal discomfort controlled on oxycontin; uses oxycodone for RLS at bedtime 1-2x through night; does feel any changes needed) Tiredness/Fatigue: Moderate (4-6) Drowsiness/Sedation: Mild (1-3) Nausea: None Anorexia: Mild (1-3), Weight loss Dyspnea: Mild (1-3) Depression: Moderate (4-6) Anxiety: Moderate (4-6) Feelings of wellbeing/Perceived Quality of Life: Good, Acceptable Sleep: Sleeps well Constipation: Yes, Opoid induced, Managed Performance Status: Patient is able to manage her ADLs, she does pace herself, takes frequent rests if she is tired. 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 She is ambulatory, has been working in the garden, and does have some activity intolerance, this is now mostly impacted by her dyspnea currently. - Palliative Care Discussion: Patient very reflective on her news she received, continues to want to hope for the best. Is trying to put this all in perspective, but is concerned about her impending decline in the future. Did discuss with most provides her support right now, spending time with her granddaughters, teaching them how to sew, she does like to give parties which is definitely impacted with Covid 19. Impression and Recommendations - Palliative Care Impression: This is a 70-year-old woman with recurrent fallopian tube cancer, with long history of multiple lines of treatment, and currently with progression of disease after CT scan of the chest. She is to change up her treatment, gets very anxious with any changes, she continues to struggle with the seriousness of her illness and though hopes for the best, finds this waiting time often difficult. Palliative care continue to provide support for pain and symptom management, psychosocial support, and anticipatory guidance. Recommendations/Counseling Done: 1. Pain of neoplastic origin. Patient is doing well on her time-released OxyContin 15 mg twice daily, with no symptoms of sedation or breakthrough pain. She is using Percocet at nighttime as needed for her RLS, or discomfort in her legs. 2. Anxiety. Patient is able to express her fears and concerns, providing psychosocial support and listening presence, I did encourage her to reach out, if she wanted to process more of this. She did tentatively asked me several questions regarding the CT scan and Dr. Romero's note, we did discuss in the context of hoping for the best but still the challenge of living day-to-day. 3. Fallopian tube cancer, recurrent and metastatic disease. Patient is to change up her chemotherapy, does not know if she has antiemetics in the home. She did have some prochlorperazine that I ordered previously, we will go ahead and order both ondansetron and prochlorperazine so available on return from her chemo tomorrow. She is to get treatment as well as education, she does get quite anxious regarding this. Encouraged to reach out if she had any questions. 4. Depression. Patient is appropriately tearful, in reviewing her current news, we did reset and discussed some of the things that give her reginald. I did recommend light therapy, will send her link and instructions. 5. Advance care planning. Patient continues to express concerns looking in the future, remains grateful, continues to be supported by her kristy. We will continue to honor patient's boundaries, continue to explore patient's wishes particularly as we approach further progressive disease and decline. Telehealth Visit - TeleMedicine Visit Referring Provider: Dr. Addy Figueroa Visit Type:: TeleHealth Video Call Patient agrees and consents to this telehealth visit type: Yes Patient agrees to have their insurance billed: Yes Time spent:: 35 minutes Video type:: Doximetry Location of provider:: Office Location of patient:: Home Provider Statement: I spent 100% on the TeleHealth Video Call with the patient with greater than 50% spent counseling the patient and coordination of care.
== END 2020-07-15 15:16 | disposition home or self-care (01) ==
LOC: PC 15:15
PROVIDERS: ATTEND Nurse Practitioner Adult Health
DX: Z51.5 Encounter for palliative care (principal); G89.3 Neoplasm related pain (acute) (chronic); G25.81 Restless legs syndrome; R41.9 Unspecified symptoms and signs involving cognitive functions and awareness; C57.00 Malignant neoplasm of unspecified fallopian tube; C79.89 Secondary malignant neoplasm of other specified sites; F32.9 Major depressive disorder, single episode, unspecified; I10 Essential (primary) hypertension; K59.03 Drug induced constipation; T40.2X5A Adverse effect of other opioids, initial encounter; Z79.899 Other long term (current) drug therapy

== ENCOUNTER 2020-09-05 | Outpatient (CLI) | payer MEDICARE, OTHER ==
--- NOTE | 2020-09-05 18:01 | PROVIDER PROGRESS NOTE ---
HPI/Interval History - HPI/Interval History This is an anxious 70-year-old woman with recurrent high-grade fallopian tube cancer, has been recently on olaparib and Bevacizumab every 21 days, she was shown to have progression, and has been switched to carbo /Doxil, and with her second cycle they did add Bevacizumab per my understanding. Patient's original diagnosis is in 11/2015, patient has undergone multiple treatments, including alternative treatments between then and now. Her last CA-125 on 08/13 is reported at 1601. Patient has had progressive cough, shortness of breath, and worsening hoarseness and discomfort over 2 months, more acutely over this last week. She does feel some shortness of breath, with is worse when she lays down, does feel some pressure there. She did notify her oncology office was recommended go to the ED, which she had declined. This is quite frustrating for her , so she finally did see her PCP though he too had recommended she go to the ED. He did not feel she presented with pneumonia, or infectious process, but was encouraged to follow back up with oncology. Patient did present in the last couple days with hemoptysis, this has her quite anxious. It is most likely her tumor, she denies any fever or chills, she has been using her inhaler but continues with persistent wheeziness. She reports she is quite anxious about getting chemotherapy next week, feels like that "makes it worse". She has been recommended to see radiation oncology, both she and her have multiple questions regarding radiation. We did discuss it is palliative in nature, and to treat her symptom, and would be recommended at this point in time. They are quite tired of travel, we did review there is radiation available up at [facility] in [place] as an option depending on Dr. Romero's recommendation. Patient presents with increasing pain, reports is mostly in her lower back, she is on OxyContin 15 mg twice daily, with oxycodone 5 mg for breakthrough pain. She continues with poor appetite, worsening fatigue, and exacerbated anxiety with her changes in health. She does understand the seriousness of her illness, but is hoping for ongoing quantity and quality. Past medical history includes hypertension, most likely exacerbated by the bevacizumab, restless leg syndrome, anxiety Review of Systems - Constitutional Constitutional: reports: Fatigue, Malaise, Poor appetite, Weight loss. denies: Fever, Chills - Eyes Eyes: reports: Vision loss, Other (did not get cataract surgery; diff at times with floaters) - Ears, Nose & Throat Ears, Nose & Throat: reports: Hoarseness - Cardiovascular Cardiovascular: reports: Exertional dyspnea, Decr. exercise tolerance, Other (reports HTN currently controlled) - Respiratory Respiratory: reports: Cough (This is progressively worsened, particularly over the last few days. She has increased shortness of breath and cough with laying down, feels some pressure with this.), Wheezing, Hemoptysis (This is developed over the last 2448 hrs., she is coughing up small blood clots. She reports she reported this both to her PCP and oncology, which had encouraged to go to the ED. She did not want to pursue this route), SOB with exertion. denies: SOB at rest - Gastrointestinal Gastrointestinal: reports: Abdominal pain (controlled on current regimen;), Bloating, Poor appetite, Early satiety. denies: Constipation (using miralax), Nausea, Reflux/heartburn - Genitourinary Genitourinary: reports: Frequency, Nocturia - Musculoskeletal Musculoskeletal: reports: Stiffness, Muscle weakness - Integumentary Integumentary: reports: Dryness - Neurological Neurological: reports: General weakness - Psychiatric Psychiatric: reports: Depression, Anxiety - Endocrine Endocrine: reports: Hypothyroidism - All Other Systems All Other Systems: reports: Reviewed and negative Medications/Allergies - Medications Home Medications: Ambulatory Orders Medication Instructions Recorded Confirmed Prochlorperazine Maleate 10 mg PO BID PRN 02/25/19 09/05/20 oxyCODONE/ACET 5/325 [Percocet 5 1 tab PO Q4HR PRN 02/25/19 09/05/20 mg/325 mg] polyethylene glycoL 3350 [Miralax] 17 gm PO DAILY 05/11/19 09/05/20 amLODIPine [Norvasc] 10 mg PO DAILY 11/13/19 09/05/20 Levothyroxine Sodium [Synthroid] 25 mcg PO DAILY 01/16/20 09/05/20 Lisinopril [Prinivil] 5 mg PO DAILY 01/16/20 09/05/20 Oxycodone HCl [Oxycontin] 15 mg PO BID 04/19/20 09/05/20 Albuterol Sulf [Ventolin Hfa 2 puffs INH TID PRN 06/07/20 09/05/20 Inhaler] predniSONE [Deltasone] 10 mg PO DAILY 09/05/20 09/05/20 - Allergies Allergies/Adverse Reactions: Allergies Allergy/AdvReac Type Severity Reaction Status Date / Time erythromycin base Allergy Unknown Nausea Verified 02/02/14 06:47 [Erythromycin Base] Physical Exam - Physical Exam Patient appears quite pale on the screen, she is having frequent coughing, she appears quite exhausted. She does not appear in respiratory distress, not using accessory muscles, she is not making eye contact particular compared to previous visits. She is quite short with her . Palliative Care - POLST Patient has POLST: No Pain: Pain worsening, Location (Patient describes pain in lower back, has always had vague abdominal pain and discomfort. Does have some discomfort with cough and in her upper chest as well.) Tiredness/Fatigue: Severe (7-10) Drowsiness/Sedation: None Nausea: None Anorexia: Moderate (4-6), Weight loss Dyspnea: Moderate (4-6) Depression: Moderate (4-6) Anxiety: Severe (7-10) Feelings of wellbeing/Perceived Quality of Life: Poor, Worsening Sleep: Sleeps poorly (related to cough; and shortness of breath) Constipation: Yes, Opoid induced, Managed Performance Status: Patient does describe some functional decline, less energy, feeling poorly, she is ambulatory and able to manage her ADLs. She had been working and doing more in her garden, this is continue to decline over the last several weeks. 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 He is quite distressed they could not tell her that would improve her prognosis, we discussed the role of radiation this mostly for improving symptom management, and at this point what would be for her breathing, cough, and to keep her more comfortable. Given her increasing severity of her symptoms, now with the development of hemoptysis, would be very concerned if they did not pursue and at least get information regarding this. She has had radiation before for breast cancer, we discussed given the barrier, she could get her radiation up in [place]. But would recommend initiating this referral sooner than later. Patient is quite anxious regarding any kind of changes in her health, we discussed the advised to go to the ER, was to get more immediate feedback to make sure nothing dangerous was going on. Reports she had a CT scan on 08/29, did not see any need for further imaging, she did see her PCP who said she did not have pneumonia. We did discuss at length her anxiety, and recommended we work with her oncology team to get her the care she needs to manage her current symptoms that are causing her distress, whether it extends her quantity, I am more concerned about her quality of life currently. We did come to agreement, she would call tomorrow, and I would leave message tonight and reach out to Dr. Romero/oncology team. Impression and Recommendations - Palliative Care Impression: This is a 70-year-old woman with recurrent fallopian tube cancer, with long history of multiple lines of treatment. She is currently progression of her disease, most recently started carbo/Doxil with bevacizumab. She gets very anxious with any changes, now has developed hemoptysis, worsening cough and shortness of breath. She continues to struggle with the seriousness of her illness, and at this point in time is very concerned. Palliative care continue provide support for pain and symptom management, psychosocial support coordination of care and anticipatory guidance Recommendations/Counseling Done: 1. Pain of neoplastic origin. Patient has developed increasing lower back pain, some chest discomfort with cough and shortness of breath. Patient is on time- released OxyContin 50 mg twice a day, with oxycodone 5 mg for breakthrough pain. 2. Anxiety. Patient is significantly anxious with her changes in health, she dislikes interactions with medical system and is easily distressed by the healthcare system. She has been recommended to follow-up with ED, she did go see her PCP but now has been instructed to follow-up with oncology. 3. Fallopian tube cancer, recurrent and metastatic disease. She does have worsening disease in her chest, concern for obstructive symptoms and further worsening quality of life. She is quite anxious, did reach out to both Dr. Romero and her team, with findings from today's visit. Counseling provided to both patient and regarding the role of radiation for palliation of symptoms, as well as seriousness of her developed symptoms. 4. Depression. Patient reports herself "is cranky", she has long-term recognize the seriousness of her illness, but continues to hope for the best, she has had a good year, so with her worsening symptom burdens, she is quite discouraged. 5. Advanced care planning. Patient does present with concerning symptoms, PC will continue to follow alongside, for pain and symptom management, and anticipatory guidance. Patient is aware of the seriousness of her illness, she often wants to stay positive and hope for the best, but is quite anxious today. Telehealth Visit - TeleMedicine Visit Referring Provider: Dr. Addy Figueroa Visit Type:: TeleHealth Video Call Patient agrees and consents to this telehealth visit type: Yes Patient agrees to have their insurance billed: Yes Time spent:: 35 minutes Video type:: Doximetry Participants:: Spouse/Significant Other Location of provider:: Home Location of patient:: Home Provider Statement: I spent 100% on the TeleHealth Video Call with the patient with greater than 50% spent counseling the patient and coordination of care.
== END 2020-09-05 16:31 | disposition home or self-care (01) ==

== ENCOUNTER 2020-09-06 14:06 | Outpatient (CLI) | payer MEDICARE, OTHER ==
--- NOTE | 2020-09-06 15:10 | XRAY Report ---
PROCEDURE: Chest 2 View X-Ray INDICATIONS: DYSPNEA AND COUGH TECHNIQUE: 2 view(s) of the chest. COMPARISON: None. FINDINGS: Surgical changes and devices: Left Port-A-Cath is present with distal tip projecting over the proxima l SVC. Clips are noted overlying the right hemithorax.. Lungs and pleura: No pleural effusions or pneumothorax. There is an ill-defined opacity overlying th e right upper lobe. No priors are available for comparison. Mediastinum: Mediastinal contours are normal. Heart size is normal. Bones and chest wall: No suspicious bony abnormalities. Soft tissues appear unremarkable. IMPRESSION: 1. Ill-defined opacity overlying the right upper lobe. While this could represent overlapping osseous structures, appearance raises suspicion for underlying nodule or mass. Further evaluation with CT ch est is recommended. Reviewed by: Joanne Harris MD on 09/06/2020 3:09 PM PST Approved by: Joanne Harris MD on 09/06/2020 3:09 PM [facility] Station ID: [id number]
== END 2020-09-06 14:07 | disposition home or self-care (01) ==
LOC: DI.N 14:06
PROVIDERS: ATTEND Nurse Practitioner Adult Health
DX: R04.2 Hemoptysis (principal); R06.00 Dyspnea, unspecified; J90 Pleural effusion, not elsewhere classified; C56.9 Malignant neoplasm of unspecified ovary

== ENCOUNTER 2020-10-15 12:45 | Outpatient (CLI) | payer MEDICARE, OTHER ==
--- NOTE | 2020-10-15 17:51 | CONSULTATION NOTE ---
Palliative Care Follow Up - Referral Referring Provider: Dr. Momo Butler Time of Visit: [id number] Referral setting: Home Referral Reason: Fallopian tube Cancer with peribronchial mets - Information Sources Records reviewed: Previous records reviewed History/Review of Systems obtained from: Patient Exam limitations: No limitations - History of Present Illness Update Brief HPI Update: This is a 70-year-old woman with recurrent high-grade fallopian tube cancer, has been recently on olaparib and the visit Mab every 21 days. She is unknown to have progression and was switched to carbo/Doxil which is currently on hold as she is receiving radiation for her peribronchial disease. She is receiving 10 radiation treatments, she will be completed this Wednesday. Patient has been symptomatic, with hemoptysis, her right mediastinal mass was causing bronchus compression, she continues with wheezing, shortness of breath, and cough. We are hoping this will relieve any of obstructive symptoms, she does not feel it is getting worse, but not seen any improvement yet. Patient's most recent CT scan documented, 08/22/2020 showed the enlarging pulmonary nodules, mediastinal lymphadenopathy, new lesions in bilateral kidneys concerning for metastatic disease, and her peritoneal metastatic disease with stable or slightly decreased. Patient has longstanding chronic low-grade abdominal pain, radiating into her lower back. She is on OxyContin 15 mg twice daily, with oxycodone 5 mg for breakthrough pain. She is doing much better with her appetite with initiation of prednisone 10 mg daily, she does have a slight cushingoid look in her face. She does understand the seriousness of her illness, but is hoping for ongoing quantity and quality. Past Medical History: Patient's original diagnosis was in 11/2015, patient has undergone multiple treatments including alternative treatments. Her last CA-125 08/28 was 1413. 1995 right breast cancer T1 cN0 M0, treated with lumpectomy, radiation, chemo and tamoxifen x5 years. Hypertension, restless leg syndrome, anxiety Social History - Living Situation Living arrangement: At home Living Situation: With spouse/s.o. 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 He has a daughter and her family nearby. She very much enjoys time with her grand daughters. 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 Medications/Allergies - Medications Home Medications: Ambulatory Orders Medication Instructions Recorded Confirmed Prochlorperazine Maleate 10 mg PO BID PRN 02/25/19 10/17/20 oxyCODONE/ACET 5/325 [Percocet 5 1 tab PO Q4HR PRN 02/25/19 10/17/20 mg/325 mg] polyethylene glycoL 3350 [Miralax] 17 gm PO DAILY 05/11/19 10/17/20 amLODIPine [Norvasc] 10 mg PO DAILY 11/13/19 10/17/20 Levothyroxine Sodium [Synthroid] 25 mcg PO DAILY 01/16/20 10/17/20 Lisinopril [Prinivil] 5 mg PO DAILY 01/16/20 10/17/20 Oxycodone HCl [Oxycontin] 15 mg PO BID 04/19/20 10/17/20 Albuterol Sulf [Ventolin Hfa 2 puffs INH TID PRN 06/07/20 10/17/20 Inhaler] predniSONE [Deltasone] 10 mg PO DAILY 09/05/20 10/17/20 - Allergies Allergies/Adverse Reactions: Allergies Allergy/AdvReac Type Severity Reaction Status Date / Time erythromycin base Allergy Unknown Nausea Verified 02/02/14 06:47 [Erythromycin Base] Review of Systems - Constitutional Constitutional: reports: Fatigue, Malaise, Weight stable (133). denies: Fever, Chills - Eyes Eyes: reports: Vision loss, Other (did not get cataract surgery; diff at times with floaters) - Ears, Nose & Throat Ears, Nose & Throat: reports: Hoarseness, Dry mouth - Cardiovascular Cardiovascular: reports: Decr. exercise tolerance. denies: Chest pain, Edema - Respiratory Respiratory: reports: Cough (swallows sputum;), Wheezing, SOB with exertion. denies: SOB at rest - Gastrointestinal Gastrointestinal: reports: Abdominal pain (controlled on current regimen;), Nausea (intermittent), Bloating, Early satiety (improved with prednisone). denies: Constipation (using miralax), Reflux/heartburn - Genitourinary Genitourinary: reports: Frequency, Nocturia - Musculoskeletal Musculoskeletal: reports: Stiffness, Muscle weakness - Integumentary Integumentary: reports: Dryness - Neurological Neurological: reports: General weakness - Psychiatric Psychiatric: reports: Depression, Anxiety - Endocrine Endocrine: reports: Hypothyroidism - All Other Systems All Other Systems: reports: Reviewed and negative Physical Exam - Vital Signs Temperature: 97.3 C Pulse Rate: 92 Respiratory Rate: 18 O2 Saturation: 96 (ra @ rest) Blood Pressure: 138/86 - Physical Exam General Appearance: positive: No acute distress, Alert Eyes Bilateral: positive: Normal inspection ENT: positive: No signs of dehydration Neck: positive: Trachea midline. negative: Lymphadenopathy (R), Lymphadenopathy (L) Cardiovascular: positive: Regular rate & rhythm Respiratory: positive: No respiratory distress, Wheezes (right side/expiratory), Other (cough with talking;mild hoarseness but improved) Abdomen: positive: Soft, Tenderness (with deep palpation), Distended (mild) Skin: positive: Pallor, Dryness Extremities: positive: No pedal edema Neurologic/Psychiatric: positive: Oriented x3, Mood/affect nml, Flat affect Palliative Care - POLST Patient has POLST: No Pain: Pain unchanged, Location (lower abd/back), Comment (new pain right lower rib cage with coughing; not at rest) Tiredness/Fatigue: Moderate (4-6) Drowsiness/Sedation: Mild (1-3) Nausea: Mild (1-3) Anorexia: Mild (1-3) Dyspnea: Moderate (4-6) Depression: Mild (1-3) Anxiety: Moderate (4-6) Feelings of wellbeing/Perceived Quality of Life: Fair, Acceptable, Worsening Sleep: Sleeps well, Variable sleep pattern Constipation: Yes, Opoid induced, Managed Performance Status: She has had decline in her activity tolerance, she is able to manage her ADLs. She does pace herself and does things around the house and farm. She is still working part-time when her energy allows - Palliative Care Discussion: Patient does understand the seriousness of her illness, she is working on putting together her end-of-life planning as far as her "affairs". She does believe that every day is a blessing, and remains positive in the context of this. When she met with her PCP, he was calling her than miracle child, and she heard she may still have a year yet. She did though venture to ask me some questions this visit, regarding the continuum of care and hospice. We did discuss in the context of what hospice provides, coming to the home, as well as support for her family particularly her whom she is of course concerned about, if she were to first. Results - Lab Results Lab and Imaging Results: Patient reports her kidney function was down, her [facility] numbers on 08/28 was creatinine 1.6, GFR 47, hemoglobin 10.6. Will see if can obtained labs from [facility]. She wanted more information if possible Impression and Recommendations - Palliative Care Impression: This is a 70-year-old woman with recurrent fallopian tube cancer, with long history of multiple lines of treatment. She is currently receiving radiation to her right mediastinal mass, secondary causing bronchus compression. She will be finished with this at the end of week, I most likely continue with treatment. She was on carbo/Doxil with bevacizumab previous to break. She continues to struggle with the seriousness of her illness, and gets very anxious with any changes. Palliative care continue to provide support for pain and symptom management, psychosocial support, coordination of care and anticipatory guidance. Recommendations/Counseling Done: 1. Pain of neoplastic origin. Patient has developed increased lower back pain, some chest discomfort with cough. She is currently on OxyContin 15 mg twice a day with oxycodone 5 mg for breakthrough pain. She has only needed intermittent oxycodone, did discuss could use oxycodone if cough persistent or bothersome as well for suppression. Verbalized understanding. 2. Anxiety. Patient gets anxious with any changes in her health, has difficul ty with her anxiety and easily distressed by the healthcare system. She is doing well with radiation, very much likes Dr. Matos. We will continue to work with patient with anticipatory guidance and psychosocial support.. 3. Fallopian tube cancer, recurrent/metastatic disease. She does have worsening disease in her chest, concern for obstructive symptoms. Most likely will continue with treatment, has not followed up with oncology, will reach out and give update. 4. Advanced care planning. Patient has been taking care of her end-of-life planning documents, she very much continues to steer conversation towards "positive". Though she does understand the seriousness of her illness. We did discuss at her invitation, the continuum of care including hospice. Time Spent: 45 minutes with greater than 50% of this done in counseling regarding pain and symptom management, anticipatory guidance, and coordination of care.
== END 2020-10-15 12:46 | disposition home or self-care (01) ==
LOC: PC 12:45
PROVIDERS: ATTEND Nurse Practitioner Adult Health
DX: Z51.5 Encounter for palliative care (principal); G89.3 Neoplasm related pain (acute) (chronic); C57.00 Malignant neoplasm of unspecified fallopian tube; C78.00 Secondary malignant neoplasm of unspecified lung; F41.9 Anxiety disorder, unspecified; Z79.891 Long term (current) use of opiate analgesic
CPT/HCPCS: 99349

== ENCOUNTER 2020-12-04 10:30 | Outpatient (CLI) | payer MEDICARE, OTHER ==
--- NOTE | 2020-12-04 18:52 | CONSULTATION NOTE ---
Palliative Care Follow Up - Referral Referring Provider: Dr. Momo Butler/Dr. 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 She was originally thought to have bacteremia, her final blood cultures did not show any growth. She was sent home on Levaquin though for pulmonary acquired pneumonia, and she also had a thoracentesis for a right pleural effusion. She received her first round of gemcitabine and bevacizumab on Wednesday, she is felt quite poorly since then. She had been given several options by Dr. Romero, including supportive/hospice care. Her reached out yesterday, as patient was doing quite poorly, had increased pain, he was concerned about his sedation and use of pain medications, as well as she was not eating or drinking. We agreed I would make a home visit, and evaluate situation as well as help him help her with her medications. She continues to be very independent, and does not allow him to provide any oversight. Patient is quite pale, she is upright in her recliner, she was unable to lay flat last night to sleep. She is still having cough though she denies hemoptysis. She has intermittent hiccups that result in severe pain and spasms, suspect is diaphragmatic and etiology. Her breath sounds are decreased in her right lower lobe, she is not hypoxic, she is though somewhat tachycardic at 101, she has not taken her amlodipine her blood pressure was 152/92. She is currently taking OxyContin 15 mg twice daily, with Percocet 1-2 for breakthrough pain, her pain is substernal and severe, and is feeling exhausted by her breathlessness and her pain overall. On further exploration, she is in quite a bit of anxiety and ask essential distress, she is trying to wrap up her affairs. We did discuss in the context of this though we are hoping for the best she really should be prepared to complete all her end-of-life planning so she can enjoy her time she has left. Her is quite concerned with her increased need for pain medications, her ability to participate both emotionally and physically in the process. He feels that she has taken quite a hit with this chemotherapy, is concerned that she is not going to be able to get her tasks done. Patient took her OxyContin, I did have her take ondansetron, encourage fluids. She has no appetite, taste changes, though does appear to be drinking probably 6 to 8 glasses of fluid in 24 hours. She has been staying "on top of her bowels". Her abdomen is soft with little distention. Past Medical History: Patient's original diagnosis was 11/2015, patient has undergone multiple treatments including alternative treatments. She also had 9T 96 right breast cancer, treated with lumpectomy, radiation, chemo and tamoxifen for 5 years. Hypertension, restless leg syndrome, anxiety, and depression. Social History - Living Situation Living arrangement: At home Living Situation: With spouse/s.o. Support System: Patient lives with her and, they were high school sweetheart's, but this is her second marriage. 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 She has a son from whom she is estranged, she is having a difficult time with her relationship with her daughter and their family regarding estate planning. She very much is connected to her granddaughters, and has a strong spiritual side/kristy. Medications/Allergies - Medications Home Medications: Ambulatory Orders Medication Instructions Recorded Confirmed Prochlorperazine Maleate 10 mg PO BID PRN 02/25/19 12/04/20 oxyCODONE/ACET 5/325 [Percocet 5 1 - 2 tab PO Q4HR PRN 02/25/19 12/04/20 mg/325 mg] polyethylene glycoL 3350 [Miralax] 17 gm PO DAILY 05/11/19 12/04/20 amLODIPine [Norvasc] 5 mg PO BID 11/13/19 12/04/20 Levothyroxine Sodium [Synthroid] 75 mcg PO DAILY 01/16/20 12/04/20 Oxycodone HCl [Oxycontin] 15 mg PO BID 04/19/20 12/04/20 Albuterol Sulf [Ventolin Hfa 2 puffs INH TID PRN 06/07/20 12/04/20 Inhaler] - Allergies Allergies/Adverse Reactions: Allergies Allergy/AdvReac Type Severity Reaction Status Date / Time erythromycin base Allergy Unknown Nausea Verified 02/02/14 06:47 [Erythromycin Base] Review of Systems - Constitutional Constitutional: reports: Fatigue (severe over this last week since cheml), Malaise, Weight loss (125). denies: Fever, Chills - Eyes Eyes: reports: Vision loss, Other (did not get cataract surgery; diff at times with floaters) - Ears, Nose & Throat Ears, Nose & Throat: reports: Hoarseness, Dry mouth - Cardiovascular Cardiovascular: reports: Chest pain, Exertional dyspnea, Decr. exercise tolerance. denies: Edema - Respiratory Respiratory: reports: Cough (swallows sputum;), Wheezing, SOB with exertion. denies: SOB at rest - Gastrointestinal Gastrointestinal: reports: Abdominal pain (controlled on current regimen;), Nausea (intermittent), Bloating, Early satiety. denies: Constipation (using miralax), Reflux/heartburn - Genitourinary Genitourinary: reports: Frequency, Nocturia - Musculoskeletal Musculoskeletal: reports: Stiffness, Muscle weakness - Integumentary Integumentary: reports: Dryness - Neurological Neurological: reports: General weakness - Psychiatric Psychiatric: reports: Depression, Anxiety (worsening) - Endocrine Endocrine: reports: Hypothyroidism (recent adjustments) - All Other Systems All Other Systems: reports: Reviewed and negative Physical Exam - Vital Signs Temperature: 97.9 C Pulse Rate: 101 Respiratory Rate: 18 O2 Saturation: 95 (ra @ rest) Blood Pressure: 152/92 (had not taken meds yet) - Physical Exam General Appearance: positive: Alert, Mild distress, Anxious, Cachetic Eyes Bilateral: positive: Normal inspection ENT: positive: No signs of dehydration Neck: positive: Trachea midline. negative: Lymphadenopathy (R), Lymphadenopathy (L) Cardiovascular: positive: Tachycardia Respiratory: positive: Other (RLL). negative: No respiratory distress (hiccups with pain and spasms;) Abdomen: positive: Soft, Tenderness, Distended (mild) Skin: positive: Pallor (sallow), Dryness Extremities: positive: No pedal edema Neurologic/Psychiatric: positive: Oriented x3, Weakness, Depressed mood/affect, Flat affect Palliative Care - POLST Patient has POLST: Yes POLST Status: DNR, Selective Treatment (completed at visit; does NOT want to in hospital) Pain: Pain worsening, Location (chest and with cough) Tiredness/Fatigue: Severe (7-10) Drowsiness/Sedation: Moderate (4-6) Nausea: Moderate (4-6), With vomiting Anorexia: Severe (7-10), Weight loss Dyspnea: Moderate (4-6), Comment (cough/spasms) Depression: Moderate (4-6) Anxiety: Severe (7-10) Feelings of wellbeing/Perceived Quality of Life: Poor, Worsening Sleep: Variable sleep pattern Constipation: Yes, Opoid induced, Intermittent constipation Performance Status: Patient has been able to ambulate back and forth to the bathroom, though does feel quite weak. She has been very sedentary, spending most the time in bed or in the chair over this week. - Palliative Care Discussion: Patient continues to struggle with her journey, feeling somewhat ambivalent, she understands that she has limited options at this point. She has felt fairly horrible this last week, and we did discuss in the context of treatment versus progressive disease, particularly in light of her increased pain and breathlessness. She is very anxious in fact almost panicked about getting her end-of-life planning done, there is quite a bit of tension between her and add in trying to frame what they are both want accomplished as far as goals. It has gotten quite complicated, and most likely is a good 1 to 2-week process to finish this up. We did discuss in the context of this so my concern that things are changing quickly, she has had had a recent hospitalization, and certainly is at risk for sequela of more complications from her cancer and cancer treatment. It was quite distressing for Ed not to be able to go to the hospital, patient does not want to in the hospital or alone. She would like to have a at home. She does not want "heroics" when explored further what this means, we did complete a POLST with DN AR but did do selective treatments in case she did want to look at treating reversible conditions. We did discuss though at any point she could transition to supportive/hospice care. Ed is quite anxious, saying that she is declining, I did have multiple conversations about what to do if she was in distress, if she were to at home without hospice, and what the future is bringing as far as her impending decline. Impression and Recommendations - Palliative Care Impression: This is a 70-year-old woman with metastatic fallopian tube cancer, currently receiving gemcitabine and bevacizumab. She has had a poor week, with increased anorexia, intermittent nausea and vomiting, weakness, and worsening pain and dyspnea. Patient has had weight loss, and is anxious and in existential distress and trying to address her end-of-life planning and documents. Palliative care meeting with patient and , and attempts to provide s upport her in pain and symptom management and anticipatory guidance. Recommendations/Counseling Done: 1. Pain of neoplastic origin. Patient currently on OxyContin 15 mg twice daily, is using oxycodone for breakthrough pain, counseling provided regarding weighing benefits and burdens of pain relief versus sedation, at this point patient does not want any changes, does feel she is getting adequate control with breakthrough pain medication. May need titrated in the near future. 2. Dyspnea. This is multifactorial, patient does have increased cough, as well as suspected increased right lower lobe recurrent pleural effusion. Patient is to most likely go down to [facility] on Wednesday for treatment, will reach out and recommend follow-up chest x-ray to measure/rule out need for thoracentesis. 3. Constipation. Patient reports she is trying to increase her MiraLAX and stay "on top of it". She feels at this point time it is currently controlled. 4. Generalized weakness. This too is multifactorial, suspect related to both deconditioning, side effects of treatment, as well as progressive disease process. Patient continues to be fiercely independent, has been is so providing oversight and trying to find balance of providing her independence versus safety. 5. Medication adherence. Patient is unwilling to have assist with medications, we did go through them though so he knew what she was taking. And indications. She is currently taking them from her medication back, but had not taken her amlodipine, was just now taking her time-released oxyContin, and reminded to take her ondansetron as she had had vomiting earlier. 6. Anxiety. Patient is very anxious, she professes a strong kristy, no she is going to heaven, but is quite anxious about her current situation and completing her end-of-life planning documents. There is obvious tension between her and her , but both are on the same page as far as wanting to get this completed so that it reflects need his wishes. Did encourage them to continue to pursue this fairly aggressively, given patient's most recent hospitalization, worsening pain, and decline. 7. Advanced care planning. Patient is quite clear she does not want "heroics". We did discuss the need to translate her wishes into a POLST. We did do a POLST with DN AR and selective treatments, no medically assisted nutrition, and determine the use of antibiotics with comfort as the goal. Patient does not want to in the hospital, wants to avoid hospitalization if possible, would consider treating reversible conditions, but for end-of-life would like to be home with her family. Did introduce hospice and hospice support at that point of time for transition when she makes that decision or treatment is no longer an option. We also discussed the concept at times sometimes the burden of treatment outweighs the benefit, and can actually hasten her decline. Given patient's ambivalence regarding follow-through on treatment on Wednesday versus needing to get her affairs in order, did reach out to Dr. Romero for further clarification regarding patient's prognosis and goals of treatment curr ently. 60 minutes with greater than 50% of this spent in counseling regarding pain and symptom management, goals of care, advance care planning, anticipatory guidance. Coordination of care with oncology team.
== END 2020-12-04 10:31 | disposition home or self-care (01) ==
LOC: PC 10:30
PROVIDERS: ATTEND Nurse Practitioner Adult Health
DX: Z51.5 Encounter for palliative care (principal); G89.3 Neoplasm related pain (acute) (chronic); C57.00 Malignant neoplasm of unspecified fallopian tube; R06.00 Dyspnea, unspecified; R05 Cough; K59.03 Drug induced constipation; T40.2X5A Adverse effect of other opioids, initial encounter; R53.1 Weakness; F41.9 Anxiety disorder, unspecified; Z85.3 Personal history of malignant neoplasm of breast; Z66 Do not resuscitate
CPT/HCPCS: 99350

== ENCOUNTER 2021-01-03 11:45 | Outpatient (CLI) | payer MEDICARE, OTHER ==
--- NOTE | 2021-01-03 17:27 | CONSULTATION NOTE ---
Palliative Care Follow Up - Referral Referring Provider: Dr. 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 With her first round she did quite poorly, she reports last couple visits has been a little bit easier though does have fluctuating good and bad days. Today is a good day for her, though her notes that this can change on a dime. Patient continues to be quite frail, with anorexia, taking boost 2 times a day, reports her weight is staying stable though she appears quite thin and cachectic. Patient's pain has been improving, her cough has been improving, and her shortness of breath is somewhat better. She is having a clinical response to her treatment, she is due for scans pending. She continues with decreased right lower lobe, but no wheezes, no respiratory distress. She does still have vague diffuse abdominal pain, and is taking her OxyContin 50 mg twice daily, but has been able to decrease her oxycodone 5 mg with acetaminophen 325 mg to 2 times a day. She has been trying to stay hydrated. Patient's main anxiety has been around end-of-life planning, she feels like there a couple weeks out from finally getting all of her affairs in order. This will be a huge weight off her shoulders. She and dad are having a lot of tension between the 2 of them, mostly related to her homebound status and he does not want her driving. We discussed is not most likely limited by her pain meds, she is back to her baseline that she has been on long-term, but more to her weakness and fluctuating physical status and fatigue. She just feels very stuck, and very frustrated with the whole situation. She did develop a cyst on the back of her neck, she has been working with her PCP to clean it out, she has had a small surgical intervention, is due to have the dressing changed out it is currently packed. But I can see, is not red or look like it has any signs or symptoms of infection. They are heading to their PCP after our visit Social History - Living Situation Living arrangement: At home Living Situation: With spouse/s.o. 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 She is having a difficult time with relationship with her daughter and their family regarding estate planning, she is quite connected to her granddaughters. There has been more tension between her and her is her trying to work through all the complex family dynamics as well as planning. She is feeling somewhat better overall regarding this. Medications/Allergies - Medications Home Medications: Ambulatory Orders Medication Instructions Recorded Confirmed Prochlorperazine Maleate 10 mg PO BID PRN 02/25/19 01/03/21 oxyCODONE/ACET 5/325 [Percocet 5 1 - 2 tab PO Q4HR PRN 02/25/19 01/03/21 mg/325 mg] polyethylene glycoL 3350 [Miralax] 17 gm PO DAILY 05/11/19 01/03/21 amLODIPine [Norvasc] 5 mg PO DAILY 11/13/19 01/03/21 Levothyroxine Sodium [Synthroid] 75 mcg PO DAILY 01/16/20 01/03/21 Oxycodone HCl [Oxycontin] 15 mg PO BID 04/19/20 01/03/21 Albuterol Sulf [Ventolin Hfa 2 puffs INH TID PRN 06/07/20 01/03/21 Inhaler] Loratadine [Claritin] 10 mg PO DAILY PRN 01/03/21 01/03/21 - Allergies Allergies/Adverse Reactions: Allergies Allergy/AdvReac Type Severity Reaction Status Date / Time erythromycin base Allergy Unknown Nausea Verified 02/02/14 06:47 [Erythromycin Base] Review of Systems - Constitutional Constitutional: reports: Fatigue (persistent; flucutates), Weight loss (125). denies: Fever, Chills - Eyes Eyes: reports: Vision loss, Other (did not get cataract surgery; diff at times with floaters) - Ears, Nose & Throat Ears, Nose & Throat: reports: Hoarseness, Dry mouth - Cardiovascular Cardiovascular: reports: Exertional dyspnea, Decr. exercise tolerance. denies: Edema - Respiratory Respiratory: reports: Cough (improved), SOB with exertion. denies: SOB at rest - Gastrointestinal Gastrointestinal: reports: Abdominal pain (controlled on current regimen;), Nausea (intermittent), Bloating, Early satiety. denies: Constipation (using miralax), Reflux/heartburn - Genitourinary Genitourinary: reports: Frequency, Nocturia - Musculoskeletal Musculoskeletal: reports: Stiffness, Muscle weakness (worsening) - Integumentary Integumentary: reports: Dryness - Neurological Neurological: reports: General weakness - Psychiatric Psychiatric: reports: Depression, Anxiety - Endocrine Endocrine: reports: Hypothyroidism (recent adjustments) - All Other Systems All Other Systems: reports: Reviewed and negative Physical Exam - Vital Signs Temperature: 97.3 C Pulse Rate: 93 Respiratory Rate: 18 O2 Saturation: 97 (ra @ rest) Blood Pressure: 142/84 - Physical Exam General Appearance: positive: Alert, Mild distress, Anxious, Cachetic Eyes Bilateral: positive: Normal inspection ENT: positive: No signs of dehydration Neck: positive: Trachea midline. negative: Lymphadenopathy (R), Lymphadenopathy (L) Cardiovascular: positive: Tachycardia Respiratory: positive: Other (RLL without BS 1/[address] up). negative: No respiratory distress (hiccups with pain and spasms;), Wheezes, Rales Abdomen: positive: Soft, Tenderness, Distended (mild) Skin: positive: Pallor (sallow), Dryness Extremities: positive: No pedal edema Neurologic/Psychiatric: positive: Oriented x3, Weakness, Depressed mood/affect, Flat affect Palliative Care - POLST Patient has POLST: Yes POLST Status: DNR, Selective Treatment Pain: Pain improved, Location (see HPI) Tiredness/Fatigue: Moderate (4-6) Drowsiness/Sedation: Moderate (4-6) Nausea: Moderate (4-6) Anorexia: Moderate (4-6) Dyspnea: Moderate (4-6) Depression: Moderate (4-6) Anxiety: Moderate (4-6) Feelings of wellbeing/Perceived Quality of Life: Fair, Acceptable Sleep: Variable sleep pattern Constipation: Yes, Opoid induced, Managed Performance Status: Patient is having more trouble with just activity intolerance overall. She can walk short distances, but is quite fatiguing. She does have fluctuating days particularly related around to her chemo therapy. She does have stairs she has to navigate to get to the shower. She spends quite a bit of time in her recliner. was asking about wheelchair, she found that quite distressing though admits that might be helpful at times. She is no longer able to drive, though she believes she could, this is a stressor between the 2 of them. I would put her PPS at 60% - Palliative Care Discussion: Patient continues to struggle with her fluctuating health, and limitations brought by it. It does cause quite a bit of tension as far as itching her and her , as well as complex family issues. She is feeling like she is making progress so in this is been somewhat of a relief for her. She does feel quite limited given he does not want her driving, though she does sound like she may be too weak to really take this on. Patient does have some insight into the seriousness of her illness, though finds it quite difficult to visit this. She is hoping when her "treatment is done" that she will have a break and be able to plan for some activities. Encouraged him on days or weeks that she is doing better to plan time together. At is doing and picking up much of the work, but is missing spending time with her. She does feel like she can go short distances, encouraged them to think a little outside of the box. He does get quite anxious about her being away from any kind of medical support, discussed possibly the [place] or something close to corrider in [place]. Did speak with the separately, he does see her declining, is worried about how best this is all going to come together, he is feeling somewhat overwhelmed, and she gets quite frustrated. Because of the complex family dynamics, he does not have anybody really he can talk to. He is very worried some day he is going to wake up and she will be gone, we have talked about what to do last visit. He remains appropriately tearful and asking appropriate questions. Impression and Recommendations - Palliative Care Impression: This is a 70-year-old woman with metastatic fallopian tube cancer, currently receiving gemcitabine and bevacizumab. She does have fluctuating weeks related to her treatment, which include worsening anorexia, intermittent nausea, fluctuating weakness, pain and dyspnea though have improved. She continues with high anxiety, but is getting through some of her end-of-life planning. Palliative care meeting with patient and with attempts to provide support and anticipatory guidance in the context of her disease process as well as pain and symptom management Recommendations/Counseling Done: 1. Pain of neoplastic origin. Patient currently on OxyContin 15 mg twice daily, has been able to decrease oxycodone for breakthrough pain, to 1-2 times a day. Her pain has improved some. No titration needed today. 2. Dyspnea. This is multifactorial, patient's cough has improved, is suspect still has recurrent right lower lobe pleural effusion though is not severely symptomatic at this point in time. She is being followed you have dub, at this point in time I believe she is asymptomatic enough to tolerate current level of effusion. 3. Constipation. Patient is titrating MiraLAX appropriately. 4. Generalized weakness. This is multifactorial, patient has been much more sedentary, as well as likely related to progressive disease process. Did tentatively approach possibly getting a transport wheelchair, so they can do a little bit more, or if they are out and about she has some way to manage her weakness. 6. Anxiety. Patient continues with anxiety, is having difficulty again with acknowledging the seriousness of her current illness and anticipating her decline. She is working though on her end-of-life planning, this is helping improve her anxiety in the context of end-of-life. 7. Advanced care planning. Patient does have a POLST with DN AR/DNI and selective treatments we did last visit, with no medically assisted nutrition and determine the use of antibiotics with comfort as a goal. Patient does not want to in the hospital and wants to avoid hospitalization if possible. continues to feel somewhat overwhelmed by patient's reluctance to plan for end-of-life more practically, as well as family dynamics. Have offered resources for him for follow-up, at this point in time he has declined. 45 minutes with greater than 50% of this done in counseling regarding symptom management, anticipatory guidance, and continue to develop rapport.
== END 2021-01-03 11:46 | disposition home or self-care (01) ==
LOC: PC 11:45
PROVIDERS: ATTEND Nurse Practitioner Adult Health
DX: Z51.5 Encounter for palliative care (principal); G89.3 Neoplasm related pain (acute) (chronic); C57.00 Malignant neoplasm of unspecified fallopian tube; R06.00 Dyspnea, unspecified; K59.00 Constipation, unspecified; R53.1 Weakness; F41.9 Anxiety disorder, unspecified; Z79.899 Other long term (current) drug therapy; Z79.891 Long term (current) use of opiate analgesic; Z66 Do not resuscitate
CPT/HCPCS: 99349

== ENCOUNTER 2021-01-20 14:30 | Outpatient (CLI) | payer MEDICARE, OTHER ==
--- NOTE | 2021-01-20 17:18 | CONSULTATION NOTE ---
Palliative Care Follow Up - Referral Referring Provider: Dr. 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 She has continued to decline functionally, with increasing symptom burden, and has done poorly these last few treatments with her chemotherapy. She cassi quite frail, with anorexia, and appears quite cachectic. She had been receiving some improvement with treatment with cough and shortness of breath, but this has worsened again. Patient continues to have severe anxiety around her end-of-life planning, lasted talk to her it felt like this was coming to an end, today she reports she is upset again about it, and is reviewing her will again with a coordinator of health services. She remains quite distressed regarding her relationship with her daughter, and tension with her . She feels very stuck and frustrated with the whole situation. She is having increased trouble with cough, as well as some nausea, she did have some vomiting during our visit. I did give her some ondansetron. She is having trouble tracking her medications. We will go ahead and set up a Mediset for her. She is very resistant to having her help her. She also has had no bowel movement since last , she has very little intake, one is much more sedentary. When asked about specifically what her pain is, she reports it hurts all over, some abdominal pain and discomfort suspect likely related to constipation as well as some vague upper abdominal pain radiating to her chest area, worsening with cough. On exam she is really quite pale, her pulse is up as well as her blood pressure. She reports shortness of breath, but does not appear in any distress. She has diminished breath sounds on her right side two th[address] the way up. She has in the past needed thoracentesis. She is feeling more breathless with any activity. We did discuss getting a chest x-ray, if she was willing to do a thoracentesis for relief of comfort, she will consider this. And reviewed her current situation, she does understand at this point oncology has reviewed concerned about patients being able to tolerated any more treatment. She has rescheduled several times, and has not been taking her scheduling her chemotherapy appropriately. Today she does feel much better off of it, she reports she had a fairly good weekend, but is worse again today. Again reviewed the role of hospice, recommended transition to the team if this was an alignment with her goals, she remains quite resistant but we agreed to put it as a not never but when she is ready. She is most distressed about having people coming into her house. Social History - Living Situation Living arrangement: At home Living Situation: With spouse/s.o. Support System: She, lives in a large [facility] home on a farm with her multiple animals, she is surrounded by her antiques and her farm animals. 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 Ed, her , has been trying to run the business and take care of her as well. There is significant tension between her and her and trying to work through all the complex family dynamics as well as end-of-life planning. This is a second marriage for them, they were high school sweetheart's. She is having again difficult time with relationship with her daughter and family regarding estate planning this seems to have taken over all aspects which is complicated and distressing for her. Medications/Allergies - Medications Home Medications: Ambulatory Orders Medication Instructions Recorded Confirmed Prochlorperazine Maleate 10 mg PO BID PRN 02/25/19 01/20/21 oxyCODONE/ACET 5/325 [Percocet 5 1 - 2 tab PO Q4HR PRN 02/25/19 01/20/21 mg/325 mg] polyethylene glycoL 3350 [Miralax] 17 gm PO BID 05/11/19 01/20/21 amLODIPine [Norvasc] 5 mg PO DAILY 11/13/19 01/20/21 Levothyroxine Sodium [Synthroid] 50 mcg PO DAILY 01/16/20 01/20/21 Oxycodone HCl [Oxycontin] 15 mg PO BID 04/19/20 01/20/21 Albuterol Sulf [Ventolin Hfa 2 puffs INH TID PRN 06/07/20 01/20/21 Inhaler] - Allergies Allergies/Adverse Reactions: Allergies Allergy/AdvReac Type Severity Reaction Status Date / Time erythromycin base Allergy Unknown Nausea Verified 02/02/14 06:47 [Erythromycin Base] Review of Systems - Constitutional Constitutional: reports: Fatigue (persistent; flucutates), Weight loss (125). denies: Fever, Chills - Eyes Eyes: reports: Vision loss, Other (did not get cataract surgery; diff at times with floaters) - Ears, Nose & Throat Ears, Nose & Throat: reports: Hoarseness, Dry mouth - Cardiovascular Cardiovascular: reports: Exertional dyspnea, Decr. exercise tolerance. denies: Edema - Respiratory Respiratory: reports: Cough (improved), SOB with exertion. denies: SOB at rest - Gastrointestinal Gastrointestinal: reports: Abdominal pain (controlled on current regimen;), Constipation (using miralax), Nausea (intermittent), Vomiting (at time of visit; triggered with coughing), Bloating, Early satiety. denies: Reflux/heartburn - Genitourinary Genitourinary: reports: Frequency, Nocturia - Musculoskeletal Musculoskeletal: reports: Stiffness, Muscle weakness (worsening) - Integumentary Integumentary: reports: Dryness - Neurological Neurological: reports: General weakness - Psychiatric Psychiatric: reports: Depression, Anxiety - Endocrine Endocrine: reports: Hypothyroidism - All Other Systems All Other Systems: reports: Reviewed and negative Physical Exam - Vital Signs Temperature: 97.9 C Pulse Rate: 100 Respiratory Rate: 18 O2 Saturation: 94 (ra @ rest) Blood Pressure: 162/92 - Physical Exam General Appearance: positive: Alert, Mild distress, Anxious, Cachetic Eyes Bilateral: positive: Other (periorbital edema) Neck: positive: Trachea midline. negative: Lymphadenopathy (R), Lymphadenopathy (L) Cardiovascular: positive: Tachycardia Respiratory: positive: Other (RLL without BS 2/[address] up; increased from last visit). negative: No respiratory distress (hiccups with pain and spasms;), Wheezes, Rales Abdomen: positive: Soft, Tenderness, Distended (mild) Skin: positive: Pallor (sallow), Dryness Extremities: positive: No pedal edema Neurologic/Psychiatric: positive: Oriented x3, Weakness, Depressed mood/affect, Flat affect Palliative Care - POLST Patient has POLST: Yes POLST Status: DNR, Selective Treatment Pain: Pain worsening, Location (c/o generalized overall pain/abdominal pressure/chest discomfort with coughing) Tiredness/Fatigue: Severe (7-10) Drowsiness/Sedation: Moderate (4-6) Nausea: Moderate (4-6), With vomiting (triggered with coughing) Anorexia: Moderate (4-6) Dyspnea: Moderate (4-6) Depression: Severe (7-10) Anxiety: Severe (7-10) Feelings of wellbeing/Perceived Quality of Life: Poor, Worsening Sleep: Variable sleep pattern Constipation: Yes, Opoid induced, Unmanaged (no bm since last ) Performance Status: .Patient has having declining functional status, can ambulate short distances in her house. She is quite sedentary spending most the time in the recliner. She does have to sleep upright in her bed secondary to breathlessness and cough. I would put the patient's PPS of 50% - Palliative Care Discussion: Patient and her are obviously experiencing significant manic tension, she is still not finished her estate planning and this remains problematic. They are meeting with a coordinator of health services tomorrow. Unfortunately they are both spending quite a bit of time and energy regarding this, have tried to redirect given her time she has left to find things that bring her more comfort and reignald. Patient remains ambivalent, had recommended transition to hospice for hospice support. Counseling provided regarding the continuum of care, and concern as patient is declining that they have appropriate support. She remains resistant in the context of having someone" in their house", her definitely could use the support, I suspect some of this is also regarding family dynamics. She does understand at this point in time treatment would most likely not add to any benefit and may actually hasten her decline. She remains quite symptomatic. Discussed benefits and burdens of further follow-up regarding her possible worsening pleural effusion, she remains ambivalent regarding this as well. Continue to provide support within the context of patient's ability accept her poor prognosis, she is able to verbalize the seriousness of her illness and expected continued decline. Impression and Recommendations - Palliative Care Impression: This is an anxious 70-year-old woman who at this point in time is no longer pursuing treatment, she remains ambivalent about transition to hospice. She does have metastatic fallopian tube cancer, with worsening symptom burden. Palliative care continue to support patient and with anticipatory guidance, symptom management, and transition to hospice when ready Recommendations/Counseling Done: 1. Pain of neoplastic origin. Patient currently on OxyContin 50 mg twice daily, has been using oxycodone up to 2 tabs several times a day, unable to identify precipitating trigger for taking medication, she does get quite sedated, encouraged to use 1 tab and repeat in an hour if no relief. 2. Constipation opioid induced. Patient does have severe constipation has not had a bowel movement since 01/16. Instructed to get mag citrate and take half bottle, they do not have it at home she is going to try suppository first. Instructed to increase her bowel program given her opioid use to MiraLAX 1 capful twice daily, she has been using it once daily. And increase her senna concentrate 8.6 mg 2 tabs from 1 time a day to twice a day. This is written out. Patient also having trouble with remembering if she is taking medications or not. Did fill pillbox with above. 3. Anorexia. Patient has responded before to prednisone, she is unable to tell me exactly why she quit it previously other than it made her feel jittery. She was on 10 mg, encouraged to use 5 mg with food given her positive response in the past, plus may help her with some fatigue and cough. Verbalized understanding she can stop this if she does feel side effects are not acceptable. 4. Vomiting. I suspect this is more attributed to her cough, she is eating very little bit trying to get Ensure in. Provided assistance with taking ondansetron at time of visit. Did review as needed medication use as well. I suspect this multifactorial, including constipation. 5. Anxiety. This is multifactorial, patient continues to be distressed and focused on her estate planning. Hopefully this will be completed tomorrow, they are meeting with a coordinator of health services. Unfortunately given this she is unable to really focus on anything else. They are going to need more support, the patient remains resistant to transition to hospice. 6. Dyspnea. Patient with worsening breath sounds in her right side, she is ambivalent whether she wants to work this up or not. Encouraged to if were able to tap she may be more comfortable, will arrange for chest x-ray, but she will let me know if she follows through. If she was to receive a thoracentesis, she would like it done at [facility]. She has had paracentesis done before so she does understand at some level the concept of this as well she has had a thoracentesis in the hospital before. 7. Advanced care planning. Patient does have POLST in place with DN AR/DNI and selective treatments. Counseling provided regarding the continuum of care including hospice, encouraged to let me know when they feel ready for support. 60 minutes with greater than 50% of this done in counseling regarding goals of care, symptom management, and anticipatory guidance. Awaiting patient's decision regarding chest x-ray and possible thoracentesis, as well as transition to hospice. We will see patient every 1 to 2 weeks until transition to hospice
== END 2021-01-20 14:31 | disposition home or self-care (01) ==
LOC: PC 14:30
PROVIDERS: ATTEND Nurse Practitioner Adult Health
DX: Z51.5 Encounter for palliative care (principal); G89.3 Neoplasm related pain (acute) (chronic); C57.00 Malignant neoplasm of unspecified fallopian tube; C79.9 Secondary malignant neoplasm of unspecified site; K59.03 Drug induced constipation; T40.2X5A Adverse effect of other opioids, initial encounter; R63.0 Anorexia; R11.10 Vomiting, unspecified; F41.9 Anxiety disorder, unspecified; R06.00 Dyspnea, unspecified; Z66 Do not resuscitate
CPT/HCPCS: 99350

== ENCOUNTER 2021-02-13 12:00 | Outpatient (CLI) | payer MEDICARE, OTHER ==
--- NOTE | 2021-02-13 16:21 | CONSULTATION NOTE ---
Palliative Care Follow Up - Referral Referring Provider: Dr. 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 She is continued to decline, with significant weight loss, weakness is only able to ambulate short distances, decreased intake related to early satiety and intermittent nausea, increased difficulty with swallowing, and worsening pain. Patient was having increased trouble with cough and dyspnea, after much discussion did go to [facility] ED on 01/31 for a thoracentesis with goal to improve her comfort level. They did find on chest x-ray occluded/compressed right lung with pleural effusion given lung masses and mediastinal right hilar mass. Patient did have a thoracentesis, was only able to tolerate it for short period of time, but they were able to remove 600 mils, with follow-up chest x- ray showing irrigated portion and right midlung but remaining persistent right pleural effusion. She did experience some relief with this. The recommendation had been for follow-up thoracentesis for further relief of pleural effusion. This was arranged through her PCP at [facility] on 02/11, again she was only able to tolerate it secondary to pain for short period of time, they were able to remove 400 mils, which developed similar to prior thoracentesis, but she reports overall her breathing is better. There have been multiple conversations with her and, secondary to patient's declining status. Over the last couple visits have had conversations regarding transition to hospice, patient has been quite resistant. Patient is declining fairly quickly, and would benefit from the support of hospice particularly in the context of her impending decline. Ed is very open to this, but does not want a force Maryan, did spend a significant amount time today in family conference with patient, Ed, and her niece regarding my recommendation to transition to hospice. Patient does present with decision-making capacity, is quite firm in her no, she is quite introverted and fearful not only of dying and her impending decline but also of meeting new people particularly at her time of feeling of vulnerability. She feels like her family and can manage her end of life. Past Medical History: Patient's original diagnosis was in 11/2015, has undergone multiple treatments including alternative treatments, oral treatments, and most recently completed therapy in December. Social History - Living Situation Living arrangement: At home Living Situation: With spouse/s.o. 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 Her Ed is both her second marriages, he was her "high school sweetheart". She is estranged from her son, and there is a complicated relationship with her daughter, is concerned regarding her ability to be able to cope with Maryan's impending decline. 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 Medications/Allergies - Medications Home Medications: Ambulatory Orders Medication Instructions Recorded Confirmed Prochlorperazine Maleate 10 mg PO BID PRN 02/25/19 02/14/21 oxyCODONE/ACET 5/325 [Percocet 5 1 - 2 tab PO Q4HR PRN 02/25/19 02/14/21 mg/325 mg] polyethylene glycoL 3350 [Miralax] 17 gm PO BID 05/11/19 02/14/21 amLODIPine [Norvasc] 5 mg PO DAILY 11/13/19 02/14/21 Levothyroxine Sodium [Synthroid] 50 mcg PO DAILY 01/16/20 02/14/21 Oxycodone HCl [Oxycontin] 15 mg PO BID 04/19/20 02/14/21 Albuterol Sulf [Ventolin Hfa 2 puffs INH TID PRN 06/07/20 02/14/21 Inhaler] Haloperidol Oral Soln [Haldol Oral 1 mg PO Q4HR PRN MDD Comfort Kit 02/14/21 02/14/21 Soln] LORazepam [Ativan] 0.5 mg PO Q6HR PRN MDD Comfort kit 02/14/21 02/14/21 Morphine Sulfate [Morphine Sulf 10 - 20 mg PO .Q2 PRN MDD comfort 02/14/21 02/14/21 Oral (Roxanol)] kit - Allergies Allergies/Adverse Reactions: Allergies Allergy/AdvReac Type Severity Reaction Status Date / Time erythromycin base Allergy Unknown Nausea Verified 02/02/14 06:47 [Erythromycin Base] Review of Systems - Constitutional Constitutional: reports: Fatigue (worsening; sleeping more), Weakness, Weight loss (very thin and cachetic in appearance). denies: Fever, Chills - Eyes Eyes: reports: Vision loss, Other (did not get cataract surgery; diff at times with floaters) - Ears, Nose & Throat Ears, Nose & Throat: reports: Hoarseness, Dry mouth. denies: Mouth lesions - Cardiovascular Cardiovascular: reports: Lightheadedness, Exertional dyspnea, Decr. exercise tolerance. denies: Edema - Respiratory Respiratory: reports: Cough (improved after thoracentesis; creamy sputum; hever ers gag reflex), Wheezing, Orthopnea, SOB with exertion. denies: Hemoptysis, SOB at rest - Gastrointestinal Gastrointestinal: reports: Abdominal pain (controlled on current regimen;), Constipation (using miralax), Nausea (intermittent), Vomiting ( triggered with coughing), Bloating, Poor appetite, Early satiety (eating only small amounts). denies: Reflux/heartburn - Genitourinary Genitourinary: reports: Frequency, Nocturia - Musculoskeletal Musculoskeletal: reports: Stiffness, Muscle weakness (worsening), Other (needing stand by assist for ambulation) - Integumentary Integumentary: reports: Dryness - Neurological Neurological: reports: General weakness - Psychiatric Psychiatric: reports: Depression, Anxiety - Endocrine Endocrine: reports: Hypothyroidism - All Other Systems All Other Systems: reports: Reviewed and negative Physical Exam - Vital Signs Temperature: 97.7 C Pulse Rate: 95 Respiratory Rate: 18 O2 Saturation: 96 (ra @ rest) Blood Pressure: 132/82 - Physical Exam General Appearance: positive: Alert, Mild distress, Anxious, Cachetic Eyes Bilateral: positive: Other (periorbital edema) Neck: positive: Trachea midline. negative: Lymphadenopathy (R), Lymphadenopathy (L) Cardiovascular: positive: Tachycardia Respiratory: positive: Other (RLL without BS [address] up;). negative: No respiratory distress (shortness of breath improved but still with increased effort noted), Wheezes, Rales Abdomen: positive: Soft, Tenderness, Distended (mild) Skin: positive: Pallor (sallow), Dryness Extremities: positive: No pedal edema Neurologic/Psychiatric: positive: Oriented x3, Weakness, Depressed mood/affect, Flat affect Palliative Care - POLST Patient has POLST: Yes POLST Status: DNR, Selective Treatment Pain: Pain worsening, Location (Right chest area; using more pain medication - difficulty tracking meds), Severity (4/10) Tiredness/Fatigue: Severe (7-10) Drowsiness/Sedation: Moderate (4-6) Nausea: Mild (1-3) Anorexia: Severe (7-10), Weight loss Dyspnea: Severe (7-10) (with activity; mild at rest) Depression: Moderate (4-6) Anxiety: Severe (7-10) Feelings of wellbeing/Perceived Quality of Life: Poor, Worsening Sleep: Variable sleep pattern Constipation: Yes, Opoid induced, Intermittent constipation Performance Status: Patient is quite weak, can only ambulate short distances with assistance. Needs help getting from sitting to standing, has not had any falls but did talk to her about having hospice come particular regarding bathing. Patient with no activity tolerance, we did talk about continued pending decline and need for equipment, still remains quite resistant. She is spending most the time in a recliner, though has been sleeping in the bed. - Palliative Care Discussion: Family meeting with patient's Ed, patient, and katie Foster who is a retired RN. Did gently introduce that this is the normal, what to expect as things progressed, like a car running out of gas. Should continue to get weaker, need more help, and we would focus on keeping her comfortable. She is very afraid of having pain, currently is managing though is becoming slightly more forgetful and is very anxious to have had it all involved her medications, but is willing to allow Kristin to set up a Mediset and oversee some of this. Patient has been having friends and family visit, she very much enjoys, she does understand most likely they are coming to say their goodbyes. Counseling provided regarding weighing benefits and burdens of energy and energy conservation as well as finding things that provide her support and distraction during this time. I spent a significant amount of time reviewing again hospice role, patient is very resistant to having someone in their home, some and she does not know, she feels like add and her family can take care of her. Approached from the angle that Ed needs support, that they do not want to go the emergency room, and going to the hospital with not really provide any benefit. Patient has been very clear that she wants to be in her own home and try to convince her that this would be something would help with this. Patient though in the end who has decision-making capacity does say no. She did agree though that I could speak with Ed and Kristin, I wanted to reviewed the comfort kit, and make sure that we had the tools in the home to help make her feel better. Met with Kristin and and, at is quite concerned about retention with patient's daughter. Is grateful Kristin is willing to provide some support and agreed at the point patient is no longer to have decision-making capacity, and and feels would be of help, can make a referral to hospice for help. Counseling provided regarding anticipatory guidance around the dying process, comfort medications, and what to do at time of . Hospice number was provided to call and heads up over the weekend for pending referral next week if patient takes a turn for the worse. Results - Lab Results Lab results reviewed: Yes Lab and Imaging Results: 01/31/2021 labs at ED WBC 0.6 0.9 hemoglobin 10.3, hematocrit 31.9 alk phos 138 total protein 7.8 albumin 3.7 Impression and Recommendations - Palliative Care Impression: This is a 70-year-old woman with metastatic fallopian tube cancer, with worsening symptom burden. She has had thoracentesis x2 for total of 1000 mils out with some relief but remains dyspneic over last week at [facility], anorexic, presenting with weight loss, and functional decline. Palliative care supporting patient and family, with recommendation to transition to hospice, patient remains quite resistant despite impending decline. Provided anticipatory guidance and comfort care to manage through the weekend. Recommendations/Counseling Done: 1. Pain of neoplastic origin. Patient currently on OxyContin 15 mg twice daily, did have early refill, patient having difficulty tracking medications. She is using oxycodone 10 mg 3-4 times a day, patient's pain is mostly in the right thoracic area, reports relief with both long-acting and intermittent dosing. Patient may benefit to transition to Fentanyl patch, given increased trouble swallowing and declining status. Will not make any changes to the weekend as no one is available to monitor, will follow up on Wednesday either for hospice ref erral and/or palliative care follow-up for ongoing symptom management for end-of-life. 2. Dyspnea. Patient continues with decreased breath sounds on right side, related to pleural effusion. She reports she is breathing better though after thoracentesis. It appears it was most likely loculated, and patient unable to tolerate x2 more than 1000 mils out total. Patient is mostly short of breath with ambulation not at rest. She does continue to have intermittent cough which triggers vomiting. 3. Anxiety. This is multifactorial, patient has completed her estate planning, but remains anxious about transitioning to end-of-life. She does understand the seriousness of her illness and that she is declining, she "just wants it over with" on the other hand is very much enjoying spending time with friends and family. She would very much benefit from support from hospice, but continues to decline admit. 4. Medication adherence. Patient is becoming more forgetful, is having more difficulty with her medications. Medication list and meds reviewed with Kristin as she feels comfortable with having her set up the Mediset and encouraging and reminders for use. Comfort Medications ordered with instructions left for morphine 10 mg every 2 hours as needed for shortness of breath or severe pain is patient is not opioid james, lorazepam 0.5 mg 1 tab every 6 hours for anxiety, and haloperidol 1 mg every 4 hours as needed for agitation or terminal agitation. 5. Advanced care planning. Patient is entering most likely days to weeks, concern regarding decline of hospice support. Counseling provided to and niece regarding comfort kit medications, what to expect, and anticipatory guidance. 75 minutes with greater than 50% of this done in counseling regarding hospice hospice benefit, end-of-life and anticipatory guidance, use of comfort kit and symptom management.Coordination of care with hospice team for pending hospice admit.
== END 2021-02-13 12:01 | disposition home or self-care (01) ==
LOC: PC 12:00
PROVIDERS: ATTEND Nurse Practitioner Adult Health
DX: Z51.5 Encounter for palliative care (principal); G89.3 Neoplasm related pain (acute) (chronic); R07.89 Other chest pain; J90 Pleural effusion, not elsewhere classified; C57.00 Malignant neoplasm of unspecified fallopian tube; C79.9 Secondary malignant neoplasm of unspecified site; F41.9 Anxiety disorder, unspecified; Z66 Do not resuscitate
CPT/HCPCS: 99350

== ENCOUNTER 2021-02-20 12:30 | Outpatient (CLI) | payer MEDICARE, OTHER ==
--- NOTE | 2021-02-20 16:05 | CONSULTATION NOTE ---
Palliative Care Follow Up - Referral Referring Provider: Dr. 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 She has been declining fairly rapidly, with worsening weight loss, weakness is only able to ambulate short distance with maximum assist, taking sips of fluids only and about yogurt a day. She is having increased trouble with swallowing, her pain is currently controlled with her OxyContin 15 mg twice daily and intermittent Percocet. Her cough is currently controlled, she denies dyspnea, she has mostly been in the recliner. She reports having difficulty concentrating and reading, more difficulty with tasks, patient does through visit seem to have fluctuating confusion. Her reports that she has been having more difficulty overall, tracking things. She did have a birthday this week, has had visitors, but does wear out pretty quickly. Patient reports she is not had a bowel movement for over a week, her abdomen is soft, nontender, decreased bowel tones. We had set up Mediset's, does not appear she has been using them appropriately, has defaulted back to taking them out of her pill bottles and her purse. Unclear if patient has been taking any of her medications appropriately in particular her senna/MiraLAX. She has agreed to allow her to add to dispense her medications, this was an necessity given concern for worsening confusion and unable to take her meds appropriately. Have had multiple conversations with and patient, with recommendations about transitioning to hospice for support. Patient continues to be quite resistant, she has been meeting with her spiritual layperson, she has had family visiting, but she is having more physical caregiving needs and has been doing what he can to provide support, but would benefit from the support and training of hospice. Patient still able to give me a resounding no for hospice, but it is becoming more difficult in there. She continues to feel like her and family will manage her through end-of-life. Past Medical History: Patient's original diagnosis was in 11/2015, has undergone multiple treatments including alternative treatments oral treatments most recently completed chemotherapy treatment in December. Social History - Living Situation Living arrangement: At home Living Situation: With spouse/s.o. 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 This is her and add second marriage, she is estranged from her son, and complicated relationship with her daughter. This is been very stressful for Ed, as she does get a needed worked up. He is trying to allow access but also balance the stressors for Maryan. Medications/Allergies - Medications Home Medications: Ambulatory Orders Medication Instructions Recorded Confirmed Prochlorperazine Maleate 10 mg PO BID PRN 02/25/19 02/20/21 oxyCODONE/ACET 5/325 [Percocet 5 1 - 2 tab PO Q4HR PRN 02/25/19 02/20/21 mg/325 mg] polyethylene glycoL 3350 [Miralax] 17 gm PO BID 05/11/19 02/20/21 Levothyroxine Sodium [Synthroid] 50 mcg PO DAILY 01/16/20 02/20/21 Oxycodone HCl [Oxycontin] 15 mg PO BID 04/19/20 02/20/21 Haloperidol Oral Soln [Haldol Oral 1 mg PO Q4HR PRN MDD Comfort Kit 02/14/21 02/20/21 Soln] LORazepam [Ativan] 0.5 mg PO Q6HR PRN MDD Comfort kit 02/14/21 02/20/21 Morphine Sulfate [Morphine Sulf 10 - 20 mg PO .Q2 PRN MDD comfort 02/14/21 02/20/21 Oral (Roxanol)] kit Magnesium Citrate 150 ml PO .ONE TIME MDD may repeat 02/20/21 02/20/21 tomorrow prn - Allergies Allergies/Adverse Reactions: Allergies Allergy/AdvReac Type Severity Reaction Status Date / Time erythromycin base Allergy Unknown Nausea Verified 02/02/14 06:47 [Erythromycin Base] Review of Systems - Constitutional Constitutional: reports: Fatigue (worsening; sleeping most of the time), Weakness, Weight loss (very thin and cachetic in appearance). denies: Fever, Chills - Eyes Eyes: reports: Vision loss, Other (did not get cataract surgery; diff at times with floaters; reports difficulty with reading) - Ears, Nose & Throat Ears, Nose & Throat: reports: Hoarseness, Dry mouth. denies: Mouth lesions - Cardiovascular Cardiovascular: reports: Lightheadedness, Exertional dyspnea, Decr. exercise tolerance. denies: Edema - Respiratory Respiratory: reports: Cough (improved after thoracentesis; creamy sputum; triggers gag reflex), Wheezing, Orthopnea, SOB with exertion. denies: Hemoptysis, SOB at rest - Gastrointestinal Gastrointestinal: reports: Abdominal pain (controlled on current regimen;), Constipation (has not been using bowel medications; reports no BM for one week; not sure this is accutate), Nausea (intermittent), Vomiting ( triggered with coughing), Bloating, Poor appetite, Early satiety (taking sips of fluid onl y; maybe a yogurt per day). denies: Reflux/heartburn - Genitourinary Genitourinary: reports: Frequency, Nocturia - Musculoskeletal Musculoskeletal: reports: Stiffness, Muscle weakness (worsening), Other (needing contact assist for ambulation) - Integumentary Integumentary: reports: Dryness - Neurological Neurological: reports: General weakness, Memory problems (having difficulty tracking medications; days and events) - Psychiatric Psychiatric: reports: Depression, Anxiety - Endocrine Endocrine: reports: Hypothyroidism - Hematologic/Lymphatic Hematologic/Lymph: denies: Recurrent infections - All Other Systems All Other Systems: reports: Reviewed and negative Physical Exam - Vital Signs Temperature: 96.0 C Pulse Rate: 91 Respiratory Rate: 18 O2 Saturation: 94 (ra @rest) Blood Pressure: 132/92 - Physical Exam General Appearance: positive: Alert, Mild distress, Anxious, Cachetic Eyes Bilateral: positive: Other (periorbital edema) Neck: positive: Trachea midline. negative: Lymphadenopathy (R), Lymphadenopathy (L) Cardiovascular: positive: Tachycardia Respiratory: positive: Other (RLL without BS [address];). negative: No respiratory distress (shortness of breath improved but still with increased effort noted), Wheezes, Rales Abdomen: positive: Soft, Tenderness, Distended (mild). negative: Guarding, Mass Skin: positive: Pallor (sallow), Dryness Extremities: positive: No pedal edema Neurologic/Psychiatric: positive: Disoriented to time, Weakness, Depressed mood/ affect, Flat affect Palliative Care - POLST Patient has POLST: Yes POLST Status: DNR, Selective Treatment Pain: Pain unchanged, Location (chest/abdomen reports controlled), Comment (unclear what patient has been taking with increased confusion) Constipation: Yes, Opoid induced, Unmanaged, Comment (does not present with obstructive symptoms) Performance Status: Patient has mostly chair bound now, maximum assist by has been to the bathroom a couple times a day. Patient does not have very much insight to her weakness. She did get up to go in the other room, is staggering and very shaky. She is asking for bathing, reintroduced role of hospice can could help with this, we also discussed alternative bathing with the bathing towels, and Kavon sanchez. She does feel comfortable asking her niece Kristin who is a nurse to a ssist her. - Palliative Care Discussion: Patient is very upset as far as her ongoing decline, she does understand this is per the dying process and continues to be sounding a resounding no for hospice. She is somewhat anxious for this to be over, and is recognizing she is having more difficulty tracking, is willing to let add to her medications. At the re ports this fluctuates as far as her willingness or ability to be cooperative, she has had fluctuating confusion, he is trying to keep a low stimulus environment and support her. He reports she does sleep most of the time. We had a very long discussion that this is what dying looks like, more confusion, weakness, less responsiveness it is not medications it is her disease process and her body shutting down. Reviewed medications again and how important is to keep her comfortable.They do have spiritual care support, and they will be coming over this evening to complete arrangements and wishes. Impression and Recommendations - Palliative Care Impression: This is a 71-year-old woman who continues to decline, she is most likely within days of prognosis. Her symptoms for pain, dyspnea and cough are well controlled. She does report constipation, her functional decline is causing challenges to meet her care needs particularly without the support of hospice. Palliative care continue to provide support and anticipatory guidance as well as comfort care related to patient's resistance to transition. Recommendations/Counseling Done: 1. Pain of neoplastic origin. Patient currently as best I know has been taking OxyContin 15 mg twice daily, have had difficulty tracking medications she did not use the Mediset. She has been using 5 to 10 mg of oxycodone, of unknown amount, but pain pill bottle is mostly full. Patient would most likely benefit transition to fentanyl patch, but at this point given patient's fluctuating status, will leave as is currently. Patient continues to decline but does appear comfortable with current regimen. 2. Dyspnea. Patient continues with decreased breath sounds on right side, related to her pleural effusion. She is breathing better after thoracentesis, does have intermittent cough but much better. She is mostly short of breath with ambulation and not at rest, she is much more sedentary and sleepy most of the time now. Patient does not appear hypoxic or any kind of distress, they do have morphine if needed for breathlessness. 3. Anxiety. This is multifactorial, patient continues to be very anxious and has existential distress about her impending . She does understand that she is imminently declining, she is having some fluctuating confusion which is adding to her anxiety as well as adds. We will continue to monitor. 4. Medication adherence. Patient did not use the Mediset's, she is willing to let at administer medications, reviewed with Ed needed to take the narcotics away from her secondary to safety. Can have her have a couple of Percocet at her bedside. Wrote out the medication schedule and what she should be currently taking, will discontinue the amlodipine at this point. Comfort medications are ordered and in the home. 5. Advanced care planning. Patient most likely entering into days, concern regarding declining hospice support. Counseling provided to and reviewed again signs and symptoms of patient's ongoing decline, anticipatory guidance, and what to do at time of . Patient does have POLST with DN AR/DNI and selective treatments. Patient is completing her end-of-life planning and meeting with spiritual support. 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 60 minutes with greater than 50% of this done in counseling regarding end-of-life and anticipatory guidance, review of medications so has been can administer, comfort care in the home and symptom management. Coordination of care with hospice team for pending hospice admit if time to transition her.
== END 2021-02-20 12:31 | disposition home or self-care (01) ==
LOC: PC 12:30
PROVIDERS: ATTEND Nurse Practitioner Adult Health
DX: Z51.5 Encounter for palliative care (principal); G89.3 Neoplasm related pain (acute) (chronic); C57.00 Malignant neoplasm of unspecified fallopian tube; C79.9 Secondary malignant neoplasm of unspecified site; R06.00 Dyspnea, unspecified; F41.9 Anxiety disorder, unspecified; Z91.14 Patient's other noncompliance with medication regimen; Z79.891 Long term (current) use of opiate analgesic; Z66 Do not resuscitate
CPT/HCPCS: 99350

== ENCOUNTER 2021-02-27 11:30 | Outpatient (CLI) | payer MEDICARE, OTHER ==
--- NOTE | 2021-02-27 15:34 | CONSULTATION NOTE ---
Palliative Care Follow Up - Referral Referring Provider: Dr. 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 She continues to decline fairly rapidly, presenting today with further weight loss, increasing confusion, she is sleeping most of the time, despite her weakness she is still able to ambulate a few steps. She is taking some fluids and a few bites of yogurt, but for the most part is imminently transitioning. Her pain has been controlled on OxyContin 15 mg twice daily with Percocet 1-2 tabs every 3-4 hours, they have not been tracking very well how much she has been taking. She denies pain, it does appear most of her discomfort has been in her right side where she does have a significant pleural effusion. She is not in respiratory distress, her O2 sats are 93% though she has no breath sounds on that side. She is quite pale, and has been quite resistant to allowing others and to help her . At is quite overwhelmed with her transitioning, is very tearful, and we did discuss we are most likely within days of her end-of-life event. In the context of this, patient no longer presents with decision-making capacity, and follow-up with both hospice is [place] and [facility] hospice they have no openings till next Wednesday, [facility] had the first opening, will go ahead and make a referral. very much would like support and to be able to do as much as he can to be able to make this a peaceful passing for her, does want to keep her home but is feeling like could use further assistance and will need equipment. Patient most likely will be nonresponsive at this point in time, but could still use support. In preparation of this, we will transition the patient to fentanyl 25 mcg patch to avoid withdrawal and allow patient to have comfort, patient also has liquid morphine, Haldol, and lorazepam in the home if needed for any distress. Have reviewed the use of these medications several times with , also has a niece who is a nurse. Written instructions left as well. Social History - Living Situation Living arrangement: At home Living Situation: With spouse/s.o. 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 He is not leaving her alone anymore, he is appropriately tearful. There are many family dynamics, he is feeling quite protective as she does get overwhelmed and exhausted with visitors. There have been many requests for visiting, patient at this point in time is feeling overwhelmed and exhausted. Medications/Allergies - Medications Home Medications: Ambulatory Orders Medication Instructions Recorded Confirmed Prochlorperazine Maleate 10 mg PO BID PRN 02/25/19 02/27/21 oxyCODONE/ACET 5/325 [Percocet 5 1 - 2 tab PO Q4HR PRN 02/25/19 02/27/21 mg/325 mg] polyethylene glycoL 3350 [Miralax] 17 gm PO BID 05/11/19 02/27/21 Levothyroxine Sodium [Synthroid] 50 mcg PO DAILY 01/16/20 02/27/21 Haloperidol Oral Soln [Haldol Oral 1 mg PO Q4HR PRN MDD Comfort Kit 02/14/21 02/27/21 Soln] LORazepam [Ativan] 0.5 mg PO Q6HR PRN MDD Comfort kit 02/14/21 02/27/21 Morphine Sulfate [Morphine Sulf 10 - 20 mg PO .Q2 PRN MDD comfort 02/14/21 02/27/21 Oral (Roxanol)] kit Ondansetron [Zuplenz] 4 mg PO BID MDD 4 tabs 02/27/21 02/27/21 fentaNYL [Fentanyl 25mcg patch] 25 mcg TOP .Q72 HOURS 02/27/21 02/27/21 - Allergies Allergies/Adverse Reactions: Allergies Allergy/AdvReac Type Severity Reaction Status Date / Time erythromycin base Allergy Unknown Nausea Verified 02/02/14 06:47 [Erythromycin Base] Review of Systems - Constitutional Constitutional: reports: Fatigue (sleeping most of the time now), Weakness, Weight loss (very thin and cachetic in appearance). denies: Fever, Chills - Eyes Eyes: reports: Vision loss, Other (did not get cataract surgery; diff at times with floaters; reports difficulty with reading) - Ears, Nose & Throat Ears, Nose & Throat: reports: Dry mouth. denies: Mouth lesions - Cardiovascular Cardiovascular: reports: Lightheadedness, Exertional dyspnea, Decr. exercise tolerance. denies: Edema - Respiratory Respiratory: reports: Cough (intermittent; coughing triggers vomiting), Orthopnea, SOB with exertion. denies: Hemoptysis, SOB at rest - Gastrointestinal Gastrointestinal: reports: Abdominal pain (controlled on current regimen;), Constipation (did have BM yesterday; no longer uncomfortable), Nausea (intermittent), Vomiting ( triggered with coughing), Reflux/heartburn (stopping prednisone), Bloating, Poor appetite (few bites only), Early satiety (taking sips of fluid only; maybe a yogurt per day) - Musculoskeletal Musculoskeletal: reports: Stiffness, Muscle weakness (worsening max assist to ambulate) - Integumentary Integumentary: reports: Dryness - Neurological Neurological: reports: General weakness, Memory problems (admits to confusion; feeling overwhelmed with visitors) - Psychiatric Psychiatric: reports: Depression, Anxiety - Endocrine Endocrine: reports: Hypothyroidism - Hematologic/Lymphatic Hematologic/Lymph: denies: Recurrent infections - All Other Systems All Other Systems: reports: Reviewed and negative Physical Exam - Vital Signs Temperature: 97.7 C Pulse Rate: 104 Respiratory Rate: 18 O2 Saturation: 93 (ra @ rest) Blood Pressure: 152/92 - Physical Exam General Appearance: positive: Mild distress, Anxious, Lethargic, Cachetic Eyes Bilateral: positive: Other (periorbital edema; kept eyes closed most of the time) Neck: positive: Trachea midline. negative: Lymphadenopathy (R), Lymphadenopathy (L) Cardiovascular: positive: Tachycardia Respiratory: positive: Other (RLL without BS 2/[address] up;). negative: No respiratory distress (shortness of breath improved but still with increased effort noted), Wheezes, Rales Abdomen: positive: Soft, Tenderness, Distended (mild). negative: Guarding, Mass Skin: positive: Pallor (sallow), Dryness Extremities: positive: No pedal edema Neurologic/Psychiatric: positive: Disoriented to time, Weakness, Depressed mood/affect, Flat affect, Other (very withdrawn today) Palliative Care - POLST Patient has POLST: Yes POLST Status: DNR, Comfort Measures Pain: Pain unchanged, Location (unable to localize today;), Comment (has been taking oxycontin 15 mg BID to TID; percocet 4-6 tabs/24 hours) Tiredness/Fatigue: Severe (7-10) Drowsiness/Sedation: Severe (7-10) Nausea: Moderate (4-6), With vomiting (triggered by coughing) Anorexia: Severe (7-10), Weight loss Dyspnea: Moderate (4-6) (with activity) Depression: Severe (7-10) Anxiety: Severe (7-10) Feelings of wellbeing/Perceived Quality of Life: Poor, Worsening Sleep: Sleeps well Constipation: Yes, Opoid induced, Intermittent constipation Performance Status: Ed reports he is able to help her with bathing this morning and washing her burt r. We did discuss in the context of her transitioning, will need to obtain adult diapers, wipes, and bed protection. He feels he can manage this, he has had children in the past, but is looking somewhat overwhelmed. Most likely would benefit from hospital bed. He almost has to carry her back and forth to the bathroom, she remains quite stubborn and insistent on getting up, which has resulted in a fall. - Palliative Care Discussion: Patient very withdrawn this visit, easily distressed. Did discuss my worry as she is getting weaker, and having difficulty the need to transition to a pain patch to keep her comfortable. This conversation was done in front of her, as well as reassured her we had liquid pain medication when she can no longer take her Percocet, she would not allow me to order plain oxycodone for it to be easier to swallow. She did not want to talk further about her decline, does admit to confusion and feeling overwhelmed particularly with company. Did spend time with Ed reviewing medications again, anticipatory guidance regarding patient's impending and imminent transition. Allowed him to verbalize his concerns, fears, and frustrations regarding losing her and worry about family dynamics. Patient has not really been willing to share any part of her journey, just to remain stubbornly independent. He is trying to find a balance of keeping her safe and allowing her space, he also has been trying to pace visits and keep too much stimulus down. As it does seem to agitate her. Did get a call from son-in-law Kathrine, did review medications as he is a pharmacist, requested he provide more assistance to add regarding support as it is feeling somewhat overwhelmed regarding this. He will bring out some oral syringes as well as question of the lorazepam to have it available. Did get a call from daughter Oriana, her request was just to understand what might be happening as far as end-of-life what that looks like and what to expect. She is tearful and appropriately grieving. Impression and Recommendations - Palliative Care Impression: This is a 71-year-old woman who continues to transition to end-of-life, is most likely within days of prognosis. Her symptoms for pain, dyspnea and cough are well controlled though she is losing ability to swallow. We will transition her to fentanyl patch to continue symptom relief. Patient has been resistant to hospice, at this point in time she is mostly sleeping, confused, and family could use support and equipment. Palliative care made a referral to hospice, they will not be available until Wednesday, but will make contact and offer equipment. Recommendations/Counseling Done: 1. Pain of neoplastic origin. Counseling provided regarding transitioning to fentanyl, will put her on 25 mcg patch, they will take the last OxyContin with placement of patch. Reviewed can continue her Percocet as long as she can still swallow, otherwise and needs to transition to morphine, written instructions provided. Patient currently does appear comfortable, is sleeping most of the time, and reviewed expected to continue to sleep more and more, important to look for signs of discomfort as patient still with pain even if sleeping. 2. Dyspnea. Patient without breath sounds on right side, related to her pleural effusion. She has some intermittent cough unfortunately this triggers vomiting. She does get short of breath with ambulation but not at rest. She is sleeping most of the time and very little ambulation. Patient does not appear hypoxic or any kind of distress, they do have morphine if needed for breathlessness. 3. Anxiety. This is multifactorial, patient is appearing quite exhausted and fatigued. She has had continuous existential distress over her impending and decline. She continues to be somewhat confused today, does not want to engage in conversation regarding her current emotional state over what is happening. I did reassure her though that if she gets too anxious, and reviewed with her , she does have the lorazepam they can use for anxiety. 4. Constipation. Patient did take medication, she did have a bowel movement with the mag citrate, reports she is "cleaned out" as of yesterday. 5. Medication adherence. I did fill the medication boxes, did scheduled ondansetron twice daily, Senokot twice daily, and her levothyroxine. Encouraged to take these only if she is able to swallow safely. 6. Nausea. Patient is only eating small bites and taking sips, will discontinue the prednisone as she is having some GERD symptoms. Did schedule ondansetron twice daily, though vomiting is usually triggered by her coughing. She does report low-grade nausea persistently. 7. Caregiver fatigue. Counseling provided regarding anticipatory guidance, given patient's expected ongoing decline, referral made to hospice for end-of-life support. Has been remains at high bereavement risk and will need follow-up services. 8. Weakness. Patient continues to decline as expected as she is approaching her end-of-life event, they would benefit from equipment, have made contact with [facility] with hopes to be able to obtain equipment prior to admit. 9. Advanced care planning. Patient entering into the last days, she is mildly confused, and continues with trying to maintain her independence. Counseling provided to and reviewed again signs and symptoms of patient's ongoing decline, anticipatory guidance and what to do at time of . Patient does have POLST with DN AR/DNI and selective treatments. 60 minutes with greater than 50% of this done in counseling regarding pain and symptom management, transitioning to end-of-life, symptom management and end-of-life anticipatory guidance and coordination of care with hospice referral.
== END 2021-02-27 11:31 | disposition home or self-care (01) ==
LOC: PC 11:30
PROVIDERS: ATTEND Nurse Practitioner Adult Health
DX: Z51.5 Encounter for palliative care (principal); G89.3 Neoplasm related pain (acute) (chronic); C57.00 Malignant neoplasm of unspecified fallopian tube; R06.00 Dyspnea, unspecified; J91.8 Pleural effusion in other conditions classified elsewhere; F41.9 Anxiety disorder, unspecified; K59.03 Drug induced constipation; T40.2X5A Adverse effect of other opioids, initial encounter; R11.0 Nausea; R53.1 Weakness; Z66 Do not resuscitate
CPT/HCPCS: 99350

== ENCOUNTER 2021-03-11 14:30 | Outpatient (CLI) | payer MEDICARE, OTHER ==
--- NOTE | 2021-03-11 17:21 | CONSULTATION NOTE ---
Palliative Care Follow Up - Referral Referring Provider: Dr. 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 She has been still taking sips of fluid, small bites of food, but is now bedbound, mostly incontinent, and drifting in and out of confusion. The hope would been to transition her to hospice the beginning of last week, unfortunately patient was still aware enough, and very adamant about refusing. Today patient is quite drift he, she presents with a deep tissue injury of her coccyx, oral candidiasis, very cachectic, weak and shaky, and declining further. She has no breath sounds on her right side, she does have swelling over her right thoracic area mostly distal from the axillary down, she has a moist cough, though it appears mostly upper respiratory, her left side is clear. She has been running a temp in the last 24 hours, she is afebrile at time of visit. They have her in her bed, she is very difficult to move, her is having to lift her, he is exhausted. Patient also has not had her bowels move for several days, and 10 minutes into the visit, wanted adamantly to go to the bathroom, it was a 2 person lift to the bed to the bathroom, and unfortunately she was too weak to have a bowel movement. In this context patient does not present with decision-making capacity, unfortunately hospice is not available until , but can get equipment out tomorrow. Has been needs adequate support, as well as support for caregiving. Patient has been taking oxycodone 5 mg 1 every 3-4 hours, despite being on the fentanyl 25 mcg patch. He has not needed to use any of the Haldol or lorazepam in the home, but is feeling overwhelmed. Social History - Living Situation Living arrangement: At home Living Situation: With spouse/s.o. Support System: Patient is cared for by her and, he is mostly with her 12/04, has had a couple breaks to go to the office with his niece who sits with her. Her daughter is coming in the evenings, he is appropriately tearful but very much presents is exhausted. There continue with many family dynamics, he has been doing a very nice job though of trying to honor her request to be at home, but is wanting hospice support at this point. Medications/Allergies - Medications Home Medications: Ambulatory Orders Medication Instructions Recorded Confirmed Prochlorperazine Maleate 10 mg PO BID PRN 02/25/19 03/11/21 oxyCODONE/ACET 5/325 [Percocet 5 1 - 2 tab PO Q4HR PRN 02/25/19 03/11/21 mg/325 mg] polyethylene glycoL 3350 [Miralax] 17 gm PO BID 05/11/19 03/11/21 Haloperidol Oral Soln [Haldol Oral 1 mg PO Q4HR PRN MDD Comfort Kit 02/14/21 03/11/21 Soln] LORazepam [Ativan] 0.5 mg PO Q6HR PRN MDD Comfort kit 02/14/21 03/11/21 Morphine Sulfate [Morphine Sulf 10 - 20 mg PO .Q2 PRN MDD comfort 02/14/21 03/11/21 Oral (Roxanol)] kit Ondansetron [Zuplenz] 4 mg PO BID MDD 4 tabs 02/27/21 03/11/21 fentaNYL [Fentanyl 25mcg patch] 37 mcg TOP .Q72 HOURS 02/27/21 03/11/21 Fluconazole [Diflucan] 150 mg PO .ONCE 03/11/21 03/11/21 - Allergies Allergies/Adverse Reactions: Allergies Allergy/AdvReac Type Severity Reaction Status Date / Time erythromycin base Allergy Unknown Nausea Verified 02/02/14 06:47 [Erythromycin Base] Review of Systems - Constitutional Constitutional: reports: Fatigue (sleeping most of the time now), Weakness (mostly bedbound; max 2 person lift/assist to transfer to bathroom at visit), Weight loss (very thin and cachetic in appearance). denies: Fever, Chills - Eyes Eyes: reports: Vision loss - Ears, Nose & Throat Ears, Nose & Throat: reports: Dry mouth. denies: Mouth lesions - Cardiovascular Cardiovascular: reports: Lightheadedness, Exertional dyspnea, Decr. exercise tolerance. denies: Edema - Respiratory Respiratory: reports: Cough (intermittent; moist), Orthopnea, SOB with exertion. denies: Hemoptysis, SOB at rest - Gastrointestinal Gastrointestinal: reports: Abdominal pain (controlled on current regimen;), Constipation (disimpaction of large amount of hard mixed with soft stool at visit), Nausea (intermittent), Vomiting ( triggered with coughing), Poor appetite (few bites only; taking about 2 glasses of fluid daily) - Genitourinary Genitourinary: reports: Incontinence - Musculoskeletal Musculoskeletal: reports: Stiffness, Muscle weakness (worsening max assist to ambulate), Other (unable to move self in bed; total care) - Integumentary Integumentary: reports: Dryness, Hair changes (needs hair washed) - Neurological Neurological: reports: General weakness, Memory problems (drifts in and out) - Psychiatric Psychiatric: reports: Depression, Anxiety - Endocrine Endocrine: reports: Hypothyroidism - All Other Systems All Other Systems: reports: Other (limited) Physical Exam - Vital Signs Temperature: 97.9 C Pulse Rate: 96 Respiratory Rate: 18 (22 with activity) O2 Saturation: 96 Blood Pressure: 122/72 - Physical Exam General Appearance: positive: Mild distress, Anxious, Lethargic, Cachetic Eyes Bilateral: positive: Other (periorbital edema; kept eyes closed most of the time) ENT: positive: Oral lesions (mouth full of oral candidiasis) Neck: positive: Trachea midline. negative: Lymphadenopathy (R), Lymphadenopathy (L) Cardiovascular: positive: Tachycardia Respiratory: positive: No respiratory distress (with movement), Other (RLL without BS 2/[address] way up; left clear; moist upper airway cough). negative: Wheezes, Rales Abdomen: positive: Soft, Tenderness, Distended (mild). negative: Guarding, Mass Skin: positive: Pallor (sallow), Dryness, Pressure wound (6 cm dark purple DTI wound; painful; placed sacral decub dressing) Extremities: positive: No pedal edema Neurologic/Psychiatric: positive: Disoriented to time, Weakness, Depressed mood/affect, Flat affect, Other ( reports in and out of awareness) Palliative Care - POLST Patient has POLST: Yes POLST Status: DNR, Comfort Measures Pain: Pain worsening, Location (right thoracic area), Severity (severe at times) Constipation: Yes, Opoid induced, Unmanaged, Comment (has been giving Miralax in her fluids) Performance Status: Patient has been bedbound for over a week, very poor bed mobility. At is needing to lift her to reposition her and change her briefs. He is very exhausted both physically and emotionally. Patient is still able to swallow, did observe without choking. Does report pills are harder to get down though. She is not able to assist much with bed mobility. He has not been able to bathe her, to spend doing quite cloths. Will benefit from home health aide. - Palliative Care Discussion: Patient appears exhausted, does recognize P[employer]IST. Was very adamant about getting up to the toilet, despite danger to herself and difficulty. She drifted in and out as far as awareness, was very grateful and much relieved after constipation addressed. She did not want to answer any questions, did not want to ask me any questions, but was okay with me talking to her . Spoke with at length, I he does recognize he needs some help at this point in time, is exhausted both physically and emotionally. Knows the people are worried about him, but reports his kristy is such that he would not take his own life. He is overwhelmed and wondering how this is going to continue, but also worried about her leaving to. They both have strong kristy, recommended that they have their combination operator's, and provide support, not only for patient but for himself as well. He does feel very alone and isolated, has been getting help from the niece and daughter, but does feel the burden overall. Impression and Recommendations - Palliative Care Impression: This is a 71-year-old woman who continues to decline, remains quite stubborn and resistant to changes and outside caregiving. is exhausted, and recognizes they need support and help, did follow-up and follow through with referral to hospice. Patient's pain has increased, will increase pain medication, adjust constipation, as well as sacral wound. Palliative care to continue provide support until transition to hospice. Recommendations/Counseling Done: 1. Pain of neoplastic origin. Patient did transition to fentanyl 25 mcg patch, has continued to have escalating pain with using Percocet 1 tab every 3-4 hours, will add another 12 mcg patch. Requested if able to control patient, to use the morphine versus the oxycodone, for ease of administration as well as respiratory distress. Written instructions provided for adding patch, fentanyl 25 mcg patch changed by was there, as well is reviewed using 0.3 mils of Morphine for ease of administration. 2. Oral candidiasis. Patient with mouthful of yeast, suspect this is been somewhat culprit in patient's dry mouth and drinking significant mount of fluids. Did oral Diflucan 150 mg x 1, patient would not be able to do nystatin. 3. Constipation. Patient without bowel movement for several days, with significant distress and discomfort, patient too weak, was disimpacted for a large amount of hard stool mixed with significant amount of soft stool. Encouraged as long as patient is still sipping to continue with the MiraLAX, reviewed patient most likely will continue to use for a while, will continue to monitor. 4. DTI sacral. Patient poorly positioned and needs head of bed up because of respiratory distress, will order hospital bed with a Solus mattress for pressure relief. Encouraged patient to lay on side if able to tolerate, has difficulty secondary to respiratory compromise. Sacral dressing was applied. 5. Advanced care planning. aware of patient's needs are outpacing what he can provide, he is exhausted both physically and emotionally, referral to hospice made with bed and commode will come tomorrow, hospice nurse on . Written out reviewed comfort medications again, with reviewing verbally back. Psychosocial support provided. 90 minutes with greater than 50% of this time in counseling regarding end-of-life care, symptom management, disimpaction, counseling provided regarding meeting patient's care needs, and coordination of care with hospice ursula cota.
== END 2021-03-11 14:31 | disposition home or self-care (01) ==
LOC: PC 14:30
PROVIDERS: ATTEND Nurse Practitioner Adult Health
DX: Z51.5 Encounter for palliative care (principal); G89.3 Neoplasm related pain (acute) (chronic); C57.00 Malignant neoplasm of unspecified fallopian tube; C79.9 Secondary malignant neoplasm of unspecified site; B37.0 Candidal stomatitis; K59.03 Drug induced constipation; T40.2X5A Adverse effect of other opioids, initial encounter; L89.156 Pressure-induced deep tissue damage of sacral region; Z66 Do not resuscitate
CPT/HCPCS: 99350